=== PATIENT | male | born 1955 | race Caucasian/White ===

== ENCOUNTER 2018-10-17 01:07 | Inpatient (IN) | payer MEDICARE, MEDICAID ==
[~2018-10-17] VITALS: Ht 170.2 cm; Wt 111.3 kg
[2018-10-17] VITALS (51 sets, daily range): BP systolic 98–157; BP diastolic 56–86
[~2018-10-17 01:07] MED LIST: ETOMIDATE 2MG/ML 10ML VIAL IV ONE; GABA-290 PO; METF-414 PO; SUCCINYLCHOLINE CHLORIDE 200MG/10ML IV ONE; TRAM150C25 PO
[2018-10-17] MEDS ORDERED: METHYLPREDNISOLONE SOD SUCC 125 MG/2 ML VIAL ONE (01:55)
[2018-10-17] MEDS ORDERED: ETOMIDATE 2MG/ML 10ML VIAL IV ONE (02:00)
[2018-10-17] MEDS ORDERED: PROPOFOL 10MG/ML 100ML 100 ML IV SCH (02:00)
[2018-10-17] MEDS ORDERED: PROPOFOL 200MG/20ML VIAL IV ONE ×2 (02:00→02:15)
[2018-10-17] MEDS ORDERED: METHYLPREDNISOLONE SOD SUCC 125 MG/2 ML VIAL IV ONE (02:00)
[2018-10-17] MEDS ORDERED: PROPOFOL 10MG/ML 100ML 100 ML IV ONE (02:01)
[2018-10-17] MEDS ORDERED: SUCCINYLCHOLINE CHLORIDE 200MG/10ML IV ONE (02:15)
[2018-10-17] MEDS ORDERED: MIDAZOLAM HCL 50 MG in DEXTROSE 5% WATER 40 ML IV ONE ×4 (02:15)
[2018-10-17] MEDS ORDERED: SODIUM CHLORIDE 0.9% 1,000 ML IV ONE ×2 (02:15)
[2018-10-17 02:34] LABS: BG BASE EXCESS -5.9 mmol/L (-2.0-2.0); BG CARBOXYHEMOGLOBIN 4.6 % (0.5-1.5); BG DEOXYHEMOGLOBIN 1.6 % (0.0-5.0); BG FRACTION INSPIRED OXYGEN 100; BG HCO3 ACT 22.3 mmol/L (22.0-26.0); BG METHEMOGLOBIN 0.4 % (0.0-1.5); BG OXYGEN SATURATION 98.3 % (92.0-98.5); BG OXYHEMOGLOBIN 93.4 % (94.0-97.0); BG PCO2 53.3 mmHg (35.0-45.0); BG PO2 148.4 mmHg (75.0-100.0); BG SAMPLE SITE RIGHT RADIAL; BG TIDAL VOLUME(mL) 600 mL; BG VENT MODE VENT - A/C; BG VENT RATE 14 set
[2018-10-17 02:45] LABS: BASOPHILS % 0.5 % (0.0-2.0); EOSINOPHILS % 0.4 % (0.0-5.0); HEMATOCRIT. 51.5 % (42.0-52.0); HEMOGLOBIN. 17.7 g/dL (14.0-18.0); LYMPHOCYTES % 20.9 % (20.0-50.0); MEAN CORPUSCULAR HEMOGLOBIN 33.1 pg (28.0-32.0); MEAN CORPUSCULAR VOLUME 95.9 fL (80.0-94.0); MEAN PLATELET VOLUME 6.8 fl (7.4-10.4); NEUTROPHILS % 70.2 % (40.0-76.0); PLATELET 239 x1000/uL (130-400); RED BLOOD CELL COUNT 5.37 mill/uL (4.7-6.1); RED CELL DISTRIBUTION WIDTH 14.3 % (11.6-14.6)
[2018-10-17] MEDS ORDERED: FENTANYL CITRATE/PF 500 MCG in SODIUM CHLORIDE 0.9% 40 ML IV PRN (02:45)
[2018-10-17 02:51] LABS: ETHANOL BLOOD < 10 mg/dL
[2018-10-17 03:10] LABS: CHLORIDE 110 mEq/L (98-107)
[2018-10-17] MEDS: FENTANYL CITRATE/PF 500 MCG in SODIUM CHLORIDE 0.9% 40 ML IV PRN ×3 (03:40→20:30)
[2018-10-17 03:43] LABS: *AMPHETAMINES SCREEN URINE PRESUMTIVE POSITIVE (NEGATIVE); *BARBITURATES SCREEN URINE NEGATIVE (NEGATIVE); *BENZODIAZEPINES SCREEN URINE PRESUMTIVE POSITIVE (NEGATIVE)
[2018-10-17 03:44] LABS: *COCAINE SCREEN URINE PRESUMTIVE POSITIVE (NEGATIVE); CANNABINOID URINE SCREEN NEGATIVE (NEGATIVE); METHADONE URINE SCREEN NEGATIVE (NEGATIVE); OPIATES URINE SCREEN NEGATIVE (NEGATIVE); PHENCYCLIDINE URINE SCREEN NEGATIVE (NEGATIVE)
[2018-10-17 06:46] LABS: BG BASE EXCESS -2.8 mmol/L (-2.0-2.0); BG CARBOXYHEMOGLOBIN 1.4 % (0.5-1.5); BG DEOXYHEMOGLOBIN 1.8 % (0.0-5.0); BG FRACTION INSPIRED OXYGEN 100; BG HCO3 ACT 20.7 mmol/L (22.0-26.0); BG METHEMOGLOBIN 0.2 % (0.0-1.5); BG OXYGEN SATURATION 98.2 % (92.0-98.5); BG OXYHEMOGLOBIN 96.6 % (94.0-97.0); BG PCO2 33.2 mmHg (35.0-45.0); BG PH 7.413 (7.350-7.450); BG SAMPLE SITE RIGHT RADIAL; BG TIDAL VOLUME(mL) 650 mL; BG TOTAL HEMOGLOBIN 16.4 g/dL (12.0-18.0); BG VENT MODE VENT - A/C; BG VENT RATE 16 set
[2018-10-17] MEDS ORDERED: ONDANSETRON HCL 4MG/2ML INJ IV PRN (07:00)
[2018-10-17] MEDS ORDERED: GUAIFENESIN 200MG/10ML SUGAR FREE UDC PO PRN (07:00)
[2018-10-17] MEDS ORDERED: ACETAMINOPHEN 325MG TABLET PO PRN (07:00)
[2018-10-17] MEDS ORDERED: MAGNESIUM/ALUMINUM HYDROXIDE/SIMETHICONE 30ML UDC PO PRN (07:00)
[2018-10-17] MEDS ORDERED: DEXTROSE 50% WATER 50ML SYRINGE IV PRN (07:00)
[2018-10-17] MEDS ORDERED: IPRATROPIUM/ALBUTEROL 0.5-3(2.5)MG/3ML NEB INH PRN (07:00)
[2018-10-17] MEDS ORDERED: DOCUSATE SODIUM 100MG CAPSULE PO PRN (07:00)
[2018-10-17] MEDS ORDERED: DEXT 5%/0.9% NACL KCL 20MEQ/L 1,000 ML IV SCH (07:00)
[2018-10-17] MEDS ORDERED: BLOOD SUGAR DIAGNOSTIC STRIP TEST SCH (07:50)
[2018-10-17] MEDS ORDERED: INSULIN LISPRO 100 UNITS/ML SUBCUT SCH (08:20)
[2018-10-17] MEDS: IPRATROPIUM/ALBUTEROL 0.5-3(2.5)MG/3ML NEB HHN SCH ×4 (08:38→20:03)
[2018-10-17] MEDS: PROPOFOL 10MG/ML 100ML 100 ML IV PRN ×2 (08:46→18:41)
[2018-10-17] MEDS: ENOXAPARIN 30MG/0.3ML SYR SUBCUT SCH ×2 (08:46→20:11)
[2018-10-17] MEDS ORDERED: PANTOPRAZOLE SODIUM 40 MG/VIAL IV SCH (09:00)
[2018-10-17] MEDS: LEVOFLOXACIN 500MG PREMIX 100 ML IV SCH (09:07)
[2018-10-17] MEDS: METHYLPREDNISOLONE SOD SUCC 125 MG/2 ML VIAL IV SCH ×2 (09:07→18:02)
[2018-10-17] MEDS: BLOOD SUGAR DIAGNOSTIC STRIP TEST SCH ×3 (12:03→23:33)
[2018-10-17] MEDS: INSULIN LISPRO 100 UNITS/ML SUBCUT SCH ×3 (12:11→23:33)
[2018-10-17 15:26] LABS: CREATINE KINASE 69 IU/L (39-308)
[2018-10-17 15:27] LABS: CREATINE KINASE MB FRACTION 2.1 ng/mL (0.5-3.6)
[2018-10-17] MEDS: DEXT 5%/0.9% NACL 1,000 ML IV SCH (19:11)
[2018-10-17 23:21] LABS: CREATINE KINASE 51 IU/L (39-308)
[2018-10-17 23:22] LABS: CREATINE KINASE MB FRACTION 1.4 ng/mL (0.5-3.6)
[2018-10-18] VITALS (66 sets, daily range): BP systolic 90–148; BP diastolic 51–77
[2018-10-18] MEDS: IPRATROPIUM/ALBUTEROL 0.5-3(2.5)MG/3ML NEB HHN SCH ×6 (00:22→20:09)
[2018-10-18] MEDS: METHYLPREDNISOLONE SOD SUCC 125 MG/2 ML VIAL IV SCH ×3 (02:16→17:33)
[2018-10-18] MEDS: FENTANYL CITRATE/PF 500 MCG in SODIUM CHLORIDE 0.9% 40 ML IV PRN ×2 (04:27→14:46)
[2018-10-18] MEDS: DEXT 5%/0.9% NACL 1,000 ML IV SCH ×3 (05:07→22:09)
[2018-10-18] MEDS: INSULIN LISPRO 100 UNITS/ML SUBCUT SCH ×4 (05:40→23:06)
[2018-10-18] MEDS: BLOOD SUGAR DIAGNOSTIC STRIP TEST SCH ×4 (05:40→23:52)
[2018-10-18 06:38] LABS: CHLORIDE 114 mEq/L (98-107); HEMATOCRIT. 42.3 % (42.0-52.0); HEMOGLOBIN. 14.6 g/dL (14.0-18.0); MEAN CORPUSCULAR HEMOGLOBIN 32.7 pg (28.0-32.0); MEAN PLATELET VOLUME 7.3 fl (7.4-10.4); PLATELET 187 x1000/uL (130-400); RED BLOOD CELL COUNT 4.45 mill/uL (4.7-6.1)
[2018-10-18] MEDS: PROPOFOL 10MG/ML 100ML 100 ML IV PRN (07:11)
[2018-10-18 07:39] LABS: PLATELET ESTIMATE NORMAL
[2018-10-18] MEDS: ENOXAPARIN 30MG/0.3ML SYR SUBCUT SCH ×2 (08:08→21:14)
[2018-10-18] MEDS: LANSOPRAZOLE 30MG DR CAPSULE NG SCH (08:08)
[2018-10-18] MEDS: LEVOFLOXACIN 500MG PREMIX 100 ML IV SCH (08:08)
[2018-10-18 09:12] LABS: BG BASE EXCESS -5.6 mmol/L (-2.0-2.0); BG CARBOXYHEMOGLOBIN 0.5 % (0.5-1.5); BG DEOXYHEMOGLOBIN 2.5 % (0.0-5.0); BG FRACTION INSPIRED OXYGEN 60; BG HCO3 ACT 19.1 mmol/L (22.0-26.0); BG METHEMOGLOBIN 0.2 % (0.0-1.5); BG OXYGEN SATURATION 97.5 % (92.0-98.5); BG OXYHEMOGLOBIN 96.8 % (94.0-97.0); BG PH 7.355 (7.350-7.450); BG PO2 99.4 mmHg (75.0-100.0); BG SAMPLE SITE RIGHT RADIAL; BG TIDAL VOLUME(mL) 600 mL; BG TOTAL HEMOGLOBIN 14.5 g/dL (12.0-18.0); BG VENT MODE VENT - A/C; BG VENT RATE 16 set
[2018-10-18] MEDS: MIDAZOLAM HCL 50 MG in DEXTROSE 5% WATER 40 ML IV PRN ×2 (09:46→21:43)
[2018-10-18] MEDS ORDERED: DOPAMINE 400MG/250ML PREMIX 250 ML IV PRN (19:00)
[2018-10-19] VITALS (59 sets, daily range): BP systolic 97–191; BP diastolic 54–108
[2018-10-19] MEDS: IPRATROPIUM/ALBUTEROL 0.5-3(2.5)MG/3ML NEB HHN SCH ×6 (00:38→20:19)
[2018-10-19] MEDS: METHYLPREDNISOLONE SOD SUCC 125 MG/2 ML VIAL IV SCH ×3 (01:34→17:33)
[2018-10-19 05:41] LABS: CHLORIDE 116 mEq/L (98-107)
[2018-10-19 05:42] LABS: HEMATOCRIT. 39.3 % (42.0-52.0); HEMOGLOBIN. 13.3 g/dL (14.0-18.0); LYMPHOCYTES % 7.7 % (20.0-50.0); MEAN CORPUSCULAR HEMOGLOBIN 32.4 pg (28.0-32.0); MEAN CORPUSCULAR VOLUME 95.7 fL (80.0-94.0); MEAN PLATELET VOLUME 7.2 fl (7.4-10.4); MONOCYTES % 3.1 % (2.0-8.0); NEUTROPHILS % 89.2 % (40.0-76.0); PLATELET 167 x1000/uL (130-400); RED CELL DISTRIBUTION WIDTH 14.2 % (11.6-14.6)
[2018-10-19] MEDS: BLOOD SUGAR DIAGNOSTIC STRIP TEST SCH ×4 (06:01→23:34)
[2018-10-19] MEDS: INSULIN LISPRO 100 UNITS/ML SUBCUT SCH ×4 (06:01→23:36)
[2018-10-19] MEDS: DEXT 5%/0.9% NACL 1,000 ML IV SCH ×3 (06:26→21:06)
[2018-10-19] MEDS: FENTANYL CITRATE/PF 500 MCG in SODIUM CHLORIDE 0.9% 40 ML IV PRN ×2 (06:26→17:53)
[2018-10-19] MEDS: LANSOPRAZOLE 30MG DR CAPSULE NG SCH (08:56)
[2018-10-19] MEDS: ENOXAPARIN 30MG/0.3ML SYR SUBCUT SCH ×2 (08:57→21:07)
[2018-10-19] MEDS: LEVOFLOXACIN 500MG PREMIX 100 ML IV SCH (08:57)
[2018-10-19 09:21] LABS: BG BASE EXCESS -7.1 mmol/L (-2.0-2.0); BG CARBOXYHEMOGLOBIN 0.3 % (0.5-1.5); BG DEOXYHEMOGLOBIN 6.2 % (0.0-5.0); BG FRACTION INSPIRED OXYGEN 50; BG HCO3 ACT 17.3 mmol/L (22.0-26.0); BG METHEMOGLOBIN 0.3 % (0.0-1.5); BG OXYGEN SATURATION 93.8 % (92.0-98.5); BG OXYHEMOGLOBIN 93.2 % (94.0-97.0); BG PCO2 31.7 mmHg (35.0-45.0); BG PH 7.354 (7.350-7.450); BG SAMPLE SITE RIGHT RADIAL; BG TIDAL VOLUME(mL) 600 mL; BG TOTAL HEMOGLOBIN 13.9 g/dL (12.0-18.0); BG VENT MODE VENT - A/C; BG VENT RATE 16 set
[2018-10-19 15:38] LABS: BG BASE EXCESS -3.2 mmol/L (-2.0-2.0); BG CARBOXYHEMOGLOBIN 0.3 % (0.5-1.5); BG FRACTION INSPIRED OXYGEN 50; BG HCO3 ACT 21.4 mmol/L (22.0-26.0); BG METHEMOGLOBIN 0.3 % (0.0-1.5); BG OXYGEN SATURATION 90.9 % (92.0-98.5); BG OXYHEMOGLOBIN 90.4 % (94.0-97.0); BG PCO2 36.9 mmHg (35.0-45.0); BG PH 7.381 (7.350-7.450); BG PO2 59.4 mmHg (75.0-100.0); BG SAMPLE SITE RIGHT RADIAL; BG TIDAL VOLUME(mL) 600 mL; BG TOTAL HEMOGLOBIN 13.5 g/dL (12.0-18.0); BG VENT MODE VENT - A/C; BG VENT RATE 16 set
[2018-10-19] MEDS: MIDAZOLAM HCL 50 MG in DEXTROSE 5% WATER 40 ML IV PRN (17:40)
[2018-10-20] VITALS (59 sets, daily range): BP systolic 127–242; BP diastolic 74–129
[2018-10-20] MEDS: IPRATROPIUM/ALBUTEROL 0.5-3(2.5)MG/3ML NEB HHN SCH ×6 (00:08→20:05)
[2018-10-20] MEDS: METHYLPREDNISOLONE SOD SUCC 125 MG/2 ML VIAL IV SCH ×2 (01:30→09:07)
[2018-10-20] MEDS: FENTANYL CITRATE/PF 500 MCG in SODIUM CHLORIDE 0.9% 40 ML IV PRN ×3 (04:05→19:12)
[2018-10-20] MEDS: MIDAZOLAM HCL 50 MG in DEXTROSE 5% WATER 40 ML IV PRN ×2 (04:06→19:14)
[2018-10-20] MEDS: INSULIN LISPRO 100 UNITS/ML SUBCUT SCH ×4 (06:00→23:15)
[2018-10-20] MEDS: DEXT 5%/0.9% NACL 1,000 ML IV SCH ×3 (06:11→20:25)
[2018-10-20] MEDS: BLOOD SUGAR DIAGNOSTIC STRIP TEST SCH ×4 (06:13→23:15)
[2018-10-20 08:52] LABS: BG CARBOXYHEMOGLOBIN 0.2 % (0.5-1.5); BG DEOXYHEMOGLOBIN 8.5 % (0.0-5.0); BG FRACTION INSPIRED OXYGEN 65; BG HCO3 ACT 19.2 mmol/L (22.0-26.0); BG METHEMOGLOBIN 0.2 % (0.0-1.5); BG OXYGEN SATURATION 91.5 % (92.0-98.5); BG OXYHEMOGLOBIN 91.1 % (94.0-97.0); BG PCO2 33.2 mmHg (35.0-45.0); BG PH 7.379 (7.350-7.450); BG SAMPLE SITE RIGHT RADIAL; BG TIDAL VOLUME(mL) 600 mL; BG TOTAL HEMOGLOBIN 14.4 g/dL (12.0-18.0); BG VENT MODE VENT - A/C; BG VENT RATE 16 set
[2018-10-20] MEDS: LANSOPRAZOLE 30MG DR CAPSULE NG SCH (09:06)
[2018-10-20] MEDS: ENOXAPARIN 30MG/0.3ML SYR SUBCUT SCH ×2 (09:06→20:25)
[2018-10-20] MEDS: LEVOFLOXACIN 500MG PREMIX 100 ML IV SCH (09:06)
[2018-10-20] MEDS: METHYLPREDNISOLONE SOD SUCC 40 MG/ML VIAL IV SCH (17:04)
[2018-10-20 20:58] LABS: BASOPHILS % 0.1 % (0.0-2.0); HEMATOCRIT. 44.9 % (42.0-52.0); HEMOGLOBIN. 15.2 g/dL (14.0-18.0); LYMPHOCYTES % 7.7 % (20.0-50.0); MEAN CORPUSCULAR HEMOGLOBIN 32.4 pg (28.0-32.0); MEAN CORPUSCULAR VOLUME 95.9 fL (80.0-94.0); MONOCYTES % 7.7 % (2.0-8.0); NEUTROPHILS % 84.5 % (40.0-76.0); PLATELET 201 x1000/uL (130-400); RED BLOOD CELL COUNT 4.68 mill/uL (4.7-6.1); RED CELL DISTRIBUTION WIDTH 13.7 % (11.6-14.6)
[2018-10-20 21:17] LABS: CHLORIDE 116 mEq/L (98-107)
[2018-10-21] VITALS (80 sets, daily range): BP systolic 107–193; BP diastolic 59–123
[2018-10-21] MEDS: IPRATROPIUM/ALBUTEROL 0.5-3(2.5)MG/3ML NEB HHN SCH ×6 (00:35→20:54)
[2018-10-21] MEDS: MIDAZOLAM HCL 50 MG in DEXTROSE 5% WATER 40 ML IV PRN ×3 (01:49→19:22)
[2018-10-21] MEDS: FENTANYL CITRATE/PF 500 MCG in SODIUM CHLORIDE 0.9% 40 ML IV PRN ×2 (01:49→11:05)
[2018-10-21] MEDS: DEXT 5%/0.9% NACL 1,000 ML IV SCH ×3 (05:32→21:55)
[2018-10-21] MEDS: BLOOD SUGAR DIAGNOSTIC STRIP TEST SCH ×4 (05:32→23:30)
[2018-10-21] MEDS: INSULIN LISPRO 100 UNITS/ML SUBCUT SCH ×4 (06:00→23:30)
[2018-10-21 07:35] LABS: BG BASE EXCESS -4.7 mmol/L (-2.0-2.0); BG CARBOXYHEMOGLOBIN 0.5 % (0.5-1.5); BG DEOXYHEMOGLOBIN 6.4 % (0.0-5.0); BG FRACTION INSPIRED OXYGEN 60; BG METHEMOGLOBIN 0.2 % (0.0-1.5); BG OXYGEN SATURATION 93.6 % (92.0-98.5); BG OXYHEMOGLOBIN 92.9 % (94.0-97.0); BG PCO2 31.7 mmHg (35.0-45.0); BG PH 7.396 (7.350-7.450); BG PO2 67.6 mmHg (75.0-100.0); BG SAMPLE SITE RIGHT RADIAL; BG TIDAL VOLUME(mL) 600 mL; BG TOTAL HEMOGLOBIN 14.6 g/dL (12.0-18.0); BG VENT MODE VENT - A/C; BG VENT RATE 16 set
[2018-10-21] MEDS: LANSOPRAZOLE 30MG DR CAPSULE NG SCH ×2 (07:50→10:19)
[2018-10-21] MEDS: METHYLPREDNISOLONE SOD SUCC 40 MG/ML VIAL IV SCH ×2 (08:22→17:21)
[2018-10-21] MEDS: ENOXAPARIN 30MG/0.3ML SYR SUBCUT SCH ×2 (08:22→21:55)
[2018-10-21 09:13] LABS: BASOPHILS % 0.1 % (0.0-2.0); HEMATOCRIT. 40.6 % (42.0-52.0); HEMOGLOBIN. 13.9 g/dL (14.0-18.0); LYMPHOCYTES % 31.3 % (20.0-50.0); MEAN CORPUSCULAR HEMOGLOBIN 32.5 pg (28.0-32.0); MEAN PLATELET VOLUME 6.9 fl (7.4-10.4); MONOCYTES % 10.1 % (2.0-8.0); NEUTROPHILS % 58.5 % (40.0-76.0); PLATELET 191 x1000/uL (130-400); RED BLOOD CELL COUNT 4.27 mill/uL (4.7-6.1); RED CELL DISTRIBUTION WIDTH 13.9 % (11.6-14.6)
[2018-10-21 09:19] LABS: CHLORIDE 115 mEq/L (98-107)
[2018-10-21] MEDS: ACETYLCYSTEINE 100MG/ML 10% VIAL 4ML INH SCH (15:15)
[2018-10-21] MEDS ORDERED: ATROPINE SULFATE 1MG/10ML SYR ONE (23:39)
[2018-10-22] VITALS (83 sets, daily range): BP systolic 98–187; BP diastolic 54–94
[2018-10-22] MEDS: ACETYLCYSTEINE 100MG/ML 10% VIAL 4ML INH SCH ×3 (00:33→16:25)
[2018-10-22] MEDS: IPRATROPIUM/ALBUTEROL 0.5-3(2.5)MG/3ML NEB HHN SCH ×6 (00:34→20:46)
[2018-10-22] MEDS: FENTANYL CITRATE/PF 500 MCG in SODIUM CHLORIDE 0.9% 40 ML IV PRN ×3 (01:16→19:57)
[2018-10-22] MEDS: ATROPINE SULFATE 1MG/ML VIAL IV PRN (01:16)
[2018-10-22] MEDS: MIDAZOLAM HCL 50 MG in DEXTROSE 5% WATER 40 ML IV PRN ×2 (05:28→17:45)
[2018-10-22] MEDS: INSULIN LISPRO 100 UNITS/ML SUBCUT SCH ×4 (05:29→23:41)
[2018-10-22] MEDS: DEXT 5%/0.9% NACL 1,000 ML IV SCH (05:32)
[2018-10-22] MEDS: BLOOD SUGAR DIAGNOSTIC STRIP TEST SCH ×5 (05:32→23:41)
[2018-10-22 07:51] LABS: HEMATOCRIT. 42.4 % (42.0-52.0); HEMOGLOBIN. 14.6 g/dL (14.0-18.0); MEAN CORPUSCULAR HEMOGLOBIN 32.7 pg (28.0-32.0); MEAN CORPUSCULAR VOLUME 95.1 fL (80.0-94.0); MEAN PLATELET VOLUME 7.3 fl (7.4-10.4); PLATELET 195 x1000/uL (130-400); RED BLOOD CELL COUNT 4.46 mill/uL (4.7-6.1); RED CELL DISTRIBUTION WIDTH 13.7 % (11.6-14.6)
[2018-10-22 07:59] LABS: CHLORIDE 111 mEq/L (98-107)
[2018-10-22] MEDS: ENOXAPARIN 30MG/0.3ML SYR SUBCUT SCH ×2 (09:15→21:03)
[2018-10-22] MEDS: METHYLPREDNISOLONE SOD SUCC 40 MG/ML VIAL IV SCH (09:15)
[2018-10-22 09:22] LABS: BG BASE EXCESS -3.2 mmol/L (-2.0-2.0); BG CARBOXYHEMOGLOBIN 0.5 % (0.5-1.5); BG DEOXYHEMOGLOBIN 4.7 % (0.0-5.0); BG FRACTION INSPIRED OXYGEN 60; BG HCO3 ACT 21.3 mmol/L (22.0-26.0); BG METHEMOGLOBIN 0.1 % (0.0-1.5); BG OXYGEN SATURATION 95.3 % (92.0-98.5); BG OXYHEMOGLOBIN 94.7 % (94.0-97.0); BG PCO2 36.8 mmHg (35.0-45.0); BG PH 7.381 (7.350-7.450); BG PO2 79.8 mmHg (75.0-100.0); BG SAMPLE SITE RIGHT RADIAL; BG TIDAL VOLUME(mL) 600 mL; BG TOTAL HEMOGLOBIN 14.8 g/dL (12.0-18.0); BG VENT MODE VENT - A/C; BG VENT RATE 16 set
[2018-10-22] MEDS ORDERED: FUROSEMIDE 40MG/4ML VIAL IVP NR (10:15)
[2018-10-22 14:12] LABS: PLATELET ESTIMATE NORMAL
[2018-10-23] VITALS (64 sets, daily range): BP systolic 88–160; BP diastolic 51–92
[2018-10-23] MEDS: ACETYLCYSTEINE 100MG/ML 10% VIAL 4ML INH SCH ×3 (00:25→16:05)
[2018-10-23] MEDS: IPRATROPIUM/ALBUTEROL 0.5-3(2.5)MG/3ML NEB HHN SCH ×6 (00:25→20:26)
[2018-10-23] MEDS: MIDAZOLAM HCL 50 MG in DEXTROSE 5% WATER 40 ML IV PRN ×3 (01:02→18:50)
[2018-10-23] MEDS: FENTANYL CITRATE/PF 500 MCG in SODIUM CHLORIDE 0.9% 40 ML IV PRN ×4 (01:33→17:30)
[2018-10-23] MEDS: ATROPINE SULFATE 1MG/ML VIAL IV PRN ×2 (04:15→21:08)
[2018-10-23 05:30] LABS: CHLORIDE 107 mEq/L (98-107)
[2018-10-23 05:35] LABS: HEMATOCRIT. 41.8 % (42.0-52.0); HEMOGLOBIN. 14.5 g/dL (14.0-18.0); MEAN CORPUSCULAR HEMOGLOBIN 32.5 pg (28.0-32.0); MEAN CORPUSCULAR VOLUME 93.5 fL (80.0-94.0); MEAN PLATELET VOLUME 7.3 fl (7.4-10.4); PLATELET 196 x1000/uL (130-400); RED BLOOD CELL COUNT 4.47 mill/uL (4.7-6.1); RED CELL DISTRIBUTION WIDTH 13.5 % (11.6-14.6)
[2018-10-23] MEDS: INSULIN LISPRO 100 UNITS/ML SUBCUT SCH ×3 (05:56→17:42)
[2018-10-23] MEDS: BLOOD SUGAR DIAGNOSTIC STRIP TEST SCH ×3 (05:56→17:35)
[2018-10-23 07:52] LABS: BG BASE EXCESS -0.1 mmol/L (-2.0-2.0); BG CARBOXYHEMOGLOBIN 0.4 % (0.5-1.5); BG DEOXYHEMOGLOBIN 6.4 % (0.0-5.0); BG FRACTION INSPIRED OXYGEN 50; BG HCO3 ACT 22.3 mmol/L (22.0-26.0); BG METHEMOGLOBIN 0.1 % (0.0-1.5); BG OXYGEN SATURATION 93.6 % (92.0-98.5); BG OXYHEMOGLOBIN 93.1 % (94.0-97.0); BG PCO2 30.5 mmHg (35.0-45.0); BG PH 7.481 (7.350-7.450); BG PO2 66.1 mmHg (75.0-100.0); BG SAMPLE SITE RIGHT RADIAL; BG TIDAL VOLUME(mL) 600 mL; BG TOTAL HEMOGLOBIN 15.3 g/dL (12.0-18.0); BG VENT MODE VENT - A/C; BG VENT RATE 16 set
[2018-10-23 08:01] LABS: PLATELET ESTIMATE NORMAL
[2018-10-23] MEDS: LANSOPRAZOLE 30MG DR CAPSULE NG SCH (08:37)
[2018-10-23] MEDS: ENOXAPARIN 30MG/0.3ML SYR SUBCUT SCH ×2 (08:38→20:49)
[2018-10-23] MEDS ORDERED: METHYLPREDNISOLONE SOD SUCC 40 MG/ML VIAL IV SCH ×2 (09:00→14:00)
[2018-10-23] MEDS: CEFTRIAXONE 1 G PREMIX 50 ML IV SCH (10:49)
[2018-10-23] MEDS ORDERED: LIDOCAINE HCL 1% 20ML VIAL (Pyxis) INJ ONE (12:47)
[2018-10-23] MEDS ORDERED: PROPOFOL 10MG/ML 100ML 100 ML IV PRN (13:00)
[2018-10-23] MEDS: LORAZEPAM 2MG/ML CPJ IV PRN ×2 (13:24→16:45)
[2018-10-23] MEDS: SPIRONOLACTONE 25MG TABLET PO SCH (17:40)
[2018-10-23] MEDS: METHYLPREDNISOLONE SOD SUCC 125 MG/2 ML VIAL IV SCH (20:49)
[2018-10-23] MEDS: FUROSEMIDE 20MG TABLET PO SCH (20:50)
[2018-10-24] VITALS (93 sets, daily range): BP systolic 93–202; BP diastolic 48–106
[2018-10-24] MEDS: BLOOD SUGAR DIAGNOSTIC STRIP TEST SCH ×4 (00:01→17:42)
[2018-10-24] MEDS: FENTANYL CITRATE/PF 500 MCG in SODIUM CHLORIDE 0.9% 40 ML IV PRN ×5 (00:08→21:55)
[2018-10-24] MEDS: INSULIN LISPRO 100 UNITS/ML SUBCUT SCH ×4 (00:08→17:55)
[2018-10-24] MEDS: SODIUM CHLORIDE 3% FOR INH 15ML VIAL NEB INH SCH ×2 (00:19→11:48)
[2018-10-24] MEDS: IPRATROPIUM/ALBUTEROL 0.5-3(2.5)MG/3ML NEB HHN SCH ×4 (01:32→20:12)
[2018-10-24] MEDS: ACETYLCYSTEINE 100MG/ML 10% VIAL 4ML INH SCH ×2 (01:33→15:50)
[2018-10-24] MEDS: METHYLPREDNISOLONE SOD SUCC 125 MG/2 ML VIAL IV SCH ×4 (01:39→20:50)
[2018-10-24] MEDS: SPIRONOLACTONE 25MG TABLET PO SCH ×2 (06:12→17:22)
[2018-10-24] MEDS: ATROPINE SULFATE 1MG/ML VIAL IV PRN (07:07)
[2018-10-24 07:34] LABS: BG BASE EXCESS 0.3 mmol/L (-2.0-2.0); BG CARBOXYHEMOGLOBIN 0.3 % (0.5-1.5); BG FRACTION INSPIRED OXYGEN 50; BG METHEMOGLOBIN 0.2 % (0.0-1.5); BG OXYHEMOGLOBIN 94.5 % (94.0-97.0); BG PCO2 36.2 mmHg (35.0-45.0); BG PO2 76.3 mmHg (75.0-100.0); BG SAMPLE SITE RIGHT RADIAL; BG TIDAL VOLUME(mL) 600 mL; BG TOTAL HEMOGLOBIN 15.7 g/dL (12.0-18.0); BG VENT MODE VENT - A/C; BG VENT RATE 14 set
[2018-10-24] MEDS: DOBUTAMINE 250MG PREMIX 250 ML IV SCH (10:00)
[2018-10-24] MEDS: LANSOPRAZOLE 30MG DR CAPSULE NG SCH (10:11)
[2018-10-24] MEDS: FUROSEMIDE 20MG TABLET PO SCH ×2 (10:11→20:50)
[2018-10-24] MEDS: ENOXAPARIN 30MG/0.3ML SYR SUBCUT SCH ×2 (10:12→20:50)
[2018-10-24] MEDS: CEFTRIAXONE 1 G PREMIX 50 ML IV SCH (10:55)
[2018-10-24 11:24] LABS: BASOPHILS % 0.2 % (0.0-2.0); HEMATOCRIT. 42.6 % (42.0-52.0); HEMOGLOBIN. 14.8 g/dL (14.0-18.0); MEAN CORPUSCULAR HEMOGLOBIN 32.2 pg (28.0-32.0); MEAN PLATELET VOLUME 7.1 fl (7.4-10.4); MONOCYTES % 3.4 % (2.0-8.0); NEUTROPHILS % 85.4 % (40.0-76.0); PLATELET 213 x1000/uL (130-400); RED BLOOD CELL COUNT 4.58 mill/uL (4.7-6.1); RED CELL DISTRIBUTION WIDTH 13.8 % (11.6-14.6)
[2018-10-24 11:29] LABS: CHLORIDE 105 mEq/L (98-107)
[2018-10-24 11:43] LABS: CREATINE KINASE 19 IU/L (39-308)
[2018-10-24 11:44] LABS: CREATINE KINASE MB FRACTION < 1.0 ng/mL (0.5-3.6)
[2018-10-24 13:17] LABS: BG BASE EXCESS -1.1 mmol/L (-2.0-2.0); BG CARBOXYHEMOGLOBIN 0.2 % (0.5-1.5); BG DEOXYHEMOGLOBIN 8.1 % (0.0-5.0); BG FRACTION INSPIRED OXYGEN 40; BG HCO3 ACT 22.2 mmol/L (22.0-26.0); BG METHEMOGLOBIN 0.3 % (0.0-1.5); BG OXYGEN SATURATION 91.9 % (92.0-98.5); BG OXYHEMOGLOBIN 91.4 % (94.0-97.0); BG PCO2 33.6 mmHg (35.0-45.0); BG PH 7.437 (7.350-7.450); BG PO2 63.1 mmHg (75.0-100.0); BG PRESSURE SUPPORT 8; BG SAMPLE SITE RIGHT RADIAL; BG TOTAL HEMOGLOBIN 17.6 g/dL (12.0-18.0); BG VENT MODE VENT - CPAP
[2018-10-24] MEDS: MIDAZOLAM HCL 50 MG in DEXTROSE 5% WATER 40 ML IV PRN ×2 (13:50→21:55)
[2018-10-24] MEDS ORDERED: MINERAL OIL ENEMA 133ML PR NR (17:15)
[2018-10-24] MEDS ORDERED: MINERAL OIL ENEMA 133ML PR ONE (17:15)
[2018-10-24] MEDS ORDERED: BISACODYL 10MG SUPP PR PRN (17:15)
[2018-10-24] MEDS ORDERED: LACTULOSE 20G/30ML UDC PO PRN (17:15)
[2018-10-24] MEDS ORDERED: LACTULOSE 20G/30ML UDC PO NR (17:15)
[2018-10-25] VITALS (80 sets, daily range): BP systolic 84–236; BP diastolic 45–122
[2018-10-25] MEDS: BLOOD SUGAR DIAGNOSTIC STRIP TEST SCH ×4 (00:02→18:02)
[2018-10-25] MEDS: INSULIN LISPRO 100 UNITS/ML SUBCUT SCH ×5 (00:02→23:18)
[2018-10-25] MEDS: ACETYLCYSTEINE 100MG/ML 10% VIAL 4ML INH SCH ×3 (00:28→15:46)
[2018-10-25] MEDS: IPRATROPIUM/ALBUTEROL 0.5-3(2.5)MG/3ML NEB HHN SCH ×6 (00:28→20:50)
[2018-10-25] MEDS: METHYLPREDNISOLONE SOD SUCC 125 MG/2 ML VIAL IV SCH ×4 (01:34→20:38)
[2018-10-25 05:27] LABS: CHLORIDE 106 mEq/L (98-107)
[2018-10-25 05:31] LABS: HEMATOCRIT. 45.7 % (42.0-52.0); HEMOGLOBIN. 15.5 g/dL (14.0-18.0); MEAN CORPUSCULAR HEMOGLOBIN 31.9 pg (28.0-32.0); MEAN PLATELET VOLUME 7.2 fl (7.4-10.4); PLATELET 234 x1000/uL (130-400); RED BLOOD CELL COUNT 4.86 mill/uL (4.7-6.1); RED CELL DISTRIBUTION WIDTH 14.1 % (11.6-14.6)
[2018-10-25 05:36] LABS: HDL CHOLESTEROL 45 mg/dL (40-59); LDL CHOLESTEROL 141 mg/dL (5-100)
[2018-10-25] MEDS: SPIRONOLACTONE 25MG TABLET PO SCH (06:04)
[2018-10-25] MEDS: MIDAZOLAM HCL 50 MG in DEXTROSE 5% WATER 40 ML IV PRN ×2 (07:07→16:49)
[2018-10-25] MEDS: FENTANYL CITRATE/PF 500 MCG in SODIUM CHLORIDE 0.9% 40 ML IV PRN ×3 (07:08→22:40)
[2018-10-25] MEDS: ATROPINE SULFATE 1MG/ML VIAL IV PRN (07:26)
[2018-10-25] MEDS: DOBUTAMINE 250MG PREMIX 250 ML IV SCH ×2 (07:52→08:16)
[2018-10-25] MEDS ORDERED: DOBUTAMINE HCL IN DEXTROSE 5 % 250 ML IV PRN (08:00)
[2018-10-25] MEDS: FUROSEMIDE 20MG TABLET PO SCH (08:13)
[2018-10-25] MEDS: LANSOPRAZOLE 30MG DR CAPSULE NG SCH (08:13)
[2018-10-25] MEDS: ENOXAPARIN 30MG/0.3ML SYR SUBCUT SCH ×2 (08:13→20:38)
[2018-10-25 09:32] LABS: PLATELET ESTIMATE NORMAL
[2018-10-25] MEDS: CEFTRIAXONE 1 G PREMIX 50 ML IV SCH (10:23)
[2018-10-25 11:44] LABS: BG BASE EXCESS 0.5 mmol/L (-2.0-2.0); BG CARBOXYHEMOGLOBIN 0.3 % (0.5-1.5); BG DEOXYHEMOGLOBIN 4.1 % (0.0-5.0); BG HCO3 ACT 26.3 mmol/L (22.0-26.0); BG METHEMOGLOBIN 0.2 % (0.0-1.5); BG OXYGEN SATURATION 95.9 % (92.0-98.5); BG OXYHEMOGLOBIN 95.4 % (94.0-97.0); BG PCO2 46.2 mmHg (35.0-45.0); BG PH 7.373 (7.350-7.450); BG PO2 85.9 mmHg (75.0-100.0); BG SAMPLE SITE RIGHT RADIAL; BG TIDAL VOLUME(mL) 550 mL; BG TOTAL HEMOGLOBIN 15.6 g/dL (12.0-18.0); BG VENT MODE VENT - SIMV; BG VENT RATE 8 set
[2018-10-25] MEDS ORDERED: DOCUSATE SODIUM SUGAR FREE 100MG/10ML UDC GT PRN (15:15)
[2018-10-25] MEDS: LORAZEPAM 2MG/ML CPJ IV PRN (21:47)
[2018-10-25] MEDS: DIPHENHYDRAMINE 50MG/ML VIAL IV PRN (21:48)
[2018-10-26] VITALS (58 sets, daily range): BP systolic 91–235; BP diastolic 37–172
[2018-10-26] MEDS: CLONIDINE 0.1MG TABLET PO PRN ×2 (00:23→22:03)
[2018-10-26] MEDS: BLOOD SUGAR DIAGNOSTIC STRIP TEST SCH ×4 (00:41→17:42)
[2018-10-26] MEDS: ACETYLCYSTEINE 100MG/ML 10% VIAL 4ML INH SCH ×2 (01:22→09:10)
[2018-10-26] MEDS: IPRATROPIUM/ALBUTEROL 0.5-3(2.5)MG/3ML NEB HHN SCH ×6 (01:22→20:36)
[2018-10-26] MEDS: MIDAZOLAM HCL 50 MG in DEXTROSE 5% WATER 40 ML IV PRN ×3 (01:44→20:28)
[2018-10-26] MEDS: INSULIN LISPRO 100 UNITS/ML SUBCUT SCH ×3 (05:15→17:49)
[2018-10-26] MEDS: METHYLPREDNISOLONE SOD SUCC 125 MG/2 ML VIAL IV SCH ×4 (05:25→21:16)
[2018-10-26] MEDS: FENTANYL CITRATE/PF 500 MCG in SODIUM CHLORIDE 0.9% 40 ML IV PRN ×3 (07:33→20:39)
[2018-10-26 08:10] LABS: BG BASE EXCESS -0.1 mmol/L (-2.0-2.0); BG CARBOXYHEMOGLOBIN 0.7 % (0.5-1.5); BG DEOXYHEMOGLOBIN 3.1 % (0.0-5.0); BG HCO3 ACT 25.9 mmol/L (22.0-26.0); BG METHEMOGLOBIN 0.3 % (0.0-1.5); BG OXYGEN SATURATION 96.9 % (92.0-98.5); BG OXYHEMOGLOBIN 95.9 % (94.0-97.0); BG PCO2 46.6 mmHg (35.0-45.0); BG PH 7.362 (7.350-7.450); BG PO2 95.4 mmHg (75.0-100.0); BG SAMPLE SITE RIGHT RADIAL; BG TIDAL VOLUME(mL) 550 mL; BG TOTAL HEMOGLOBIN 15.7 g/dL (12.0-18.0); BG VENT MODE VENT - SIMV; BG VENT RATE 8 set
[2018-10-26] MEDS: LANSOPRAZOLE 30MG DR CAPSULE NG SCH (08:17)
[2018-10-26] MEDS: ENOXAPARIN 30MG/0.3ML SYR SUBCUT SCH ×2 (08:18→21:16)
[2018-10-26] MEDS: DOBUTAMINE 250MG PREMIX 250 ML IV SCH (08:19)
[2018-10-26] MEDS: CEFTRIAXONE 1 G PREMIX 50 ML IV SCH (11:11)
[2018-10-26 12:17] LABS: HEMATOCRIT. 43.9 % (42.0-52.0); MEAN CORPUSCULAR HEMOGLOBIN 32.9 pg (28.0-32.0); MEAN CORPUSCULAR VOLUME 95.9 fL (80.0-94.0); PLATELET 180 x1000/uL (130-400); RED BLOOD CELL COUNT 4.57 mill/uL (4.7-6.1); RED CELL DISTRIBUTION WIDTH 14.1 % (11.6-14.6)
[2018-10-26 12:27] LABS: CHLORIDE 106 mEq/L (98-107)
[2018-10-26 13:08] LABS: PLATELET ESTIMATE NORMAL
[2018-10-26] MEDS: ATORVASTATIN CALCIUM 10MG TABLET PO SCH (21:16)
[2018-10-26] MEDS: DIPHENHYDRAMINE 50MG/ML VIAL IV PRN (22:41)
[2018-10-26] MEDS: LORAZEPAM 2MG/ML CPJ IV PRN (22:41)
[2018-10-27] VITALS (51 sets, daily range): BP systolic 105–209; BP diastolic 47–128
[2018-10-27] MEDS: BLOOD SUGAR DIAGNOSTIC STRIP TEST SCH ×4 (00:04→17:23)
[2018-10-27] MEDS: INSULIN LISPRO 100 UNITS/ML SUBCUT SCH ×4 (00:08→18:10)
[2018-10-27] MEDS: IPRATROPIUM/ALBUTEROL 0.5-3(2.5)MG/3ML NEB HHN SCH ×6 (00:31→20:47)
[2018-10-27] MEDS: ACETYLCYSTEINE 100MG/ML 10% VIAL 4ML INH SCH (00:31)
[2018-10-27] MEDS: LORAZEPAM 2MG/ML CPJ IV PRN ×2 (01:11→23:33)
[2018-10-27] MEDS: FENTANYL CITRATE/PF 500 MCG in SODIUM CHLORIDE 0.9% 40 ML IV PRN (02:59)
[2018-10-27] MEDS: DOBUTAMINE 250MG PREMIX 250 ML IV SCH (03:00)
[2018-10-27] MEDS: METHYLPREDNISOLONE SOD SUCC 125 MG/2 ML VIAL IV SCH ×4 (03:01→20:24)
[2018-10-27] MEDS: LANSOPRAZOLE 30MG DR CAPSULE NG SCH (07:44)
[2018-10-27] MEDS: ENOXAPARIN 30MG/0.3ML SYR SUBCUT SCH ×2 (08:06→20:25)
[2018-10-27 08:34] LABS: BG CARBOXYHEMOGLOBIN 0.5 % (0.5-1.5); BG DEOXYHEMOGLOBIN 1.7 % (0.0-5.0); BG FRACTION INSPIRED OXYGEN 50; BG HCO3 ACT 26.5 mmol/L (22.0-26.0); BG METHEMOGLOBIN 0.1 % (0.0-1.5); BG OXYGEN SATURATION 98.3 % (92.0-98.5); BG OXYHEMOGLOBIN 97.7 % (94.0-97.0); BG PCO2 45.1 mmHg (35.0-45.0); BG PH 7.387 (7.350-7.450); BG PRESSURE SUPPORT 12; BG SAMPLE SITE RIGHT RADIAL; BG TIDAL VOLUME(mL) 550 mL; BG TOTAL HEMOGLOBIN 15.8 g/dL (12.0-18.0); BG VENT MODE VENT - SIMV; BG VENT RATE 6 set
[2018-10-27] MEDS: MIDAZOLAM HCL 50 MG in DEXTROSE 5% WATER 40 ML IV PRN (09:05)
[2018-10-27 09:16] LABS: HEMATOCRIT. 42.7 % (42.0-52.0); HEMOGLOBIN. 14.7 g/dL (14.0-18.0); MEAN CORPUSCULAR HEMOGLOBIN 32.8 pg (28.0-32.0); MEAN CORPUSCULAR VOLUME 95.2 fL (80.0-94.0); PLATELET 188 x1000/uL (130-400); RED BLOOD CELL COUNT 4.49 mill/uL (4.7-6.1); RED CELL DISTRIBUTION WIDTH 14.3 % (11.6-14.6)
[2018-10-27 09:25] LABS: CHLORIDE 106 mEq/L (98-107)
[2018-10-27] MEDS: CEFTRIAXONE 1 G PREMIX 50 ML IV SCH (10:29)
[2018-10-27 10:41] LABS: PLATELET ESTIMATE NORMAL
[2018-10-27 11:47] LABS: BG BASE EXCESS 1.4 mmol/L (-2.0-2.0); BG CARBOXYHEMOGLOBIN 0.5 % (0.5-1.5); BG DEOXYHEMOGLOBIN 5.6 % (0.0-5.0); BG FRACTION INSPIRED OXYGEN 40; BG HCO3 ACT 25.1 mmol/L (22.0-26.0); BG METHEMOGLOBIN 0.2 % (0.0-1.5); BG OXYGEN SATURATION 94.4 % (92.0-98.5); BG OXYHEMOGLOBIN 93.7 % (94.0-97.0); BG PCO2 37.1 mmHg (35.0-45.0); BG PH 7.449 (7.350-7.450); BG PO2 66.4 mmHg (75.0-100.0); BG PRESSURE SUPPORT 8; BG SAMPLE SITE RIGHT RADIAL; BG TOTAL HEMOGLOBIN 15.8 g/dL (12.0-18.0); BG VENT MODE VENT - CPAP
[2018-10-27] MEDS ORDERED: SODIUM POLYSTYRENE SULFONATE 15 G/60 ML BOT PO NR (17:30)
[2018-10-27] MEDS: ATORVASTATIN CALCIUM 10MG TABLET PO SCH (20:25)
[2018-10-27] MEDS: CLONIDINE 0.1MG TABLET PO PRN (20:25)
[2018-10-27] MEDS: DIPHENHYDRAMINE 50MG/ML VIAL IV PRN (23:33)
[2018-10-28] VITALS (27 sets, daily range): BP systolic 94–188; BP diastolic 47–126
[2018-10-28] MEDS: BLOOD SUGAR DIAGNOSTIC STRIP TEST SCH ×5 (00:06→23:48)
[2018-10-28] MEDS: INSULIN LISPRO 100 UNITS/ML SUBCUT SCH ×5 (00:10→23:48)
[2018-10-28] MEDS: IPRATROPIUM/ALBUTEROL 0.5-3(2.5)MG/3ML NEB HHN SCH ×6 (00:53→22:00)
[2018-10-28] MEDS: LORAZEPAM 2MG/ML CPJ IV PRN ×2 (02:26→04:33)
[2018-10-28] MEDS: CLONIDINE 0.1MG TABLET PO PRN (02:27)
[2018-10-28] MEDS: DIPHENHYDRAMINE 50MG/ML VIAL IV PRN (04:33)
[2018-10-28 05:21] LABS: HEMATOCRIT. 44.6 % (42.0-52.0); HEMOGLOBIN. 15.4 g/dL (14.0-18.0); MEAN CORPUSCULAR HEMOGLOBIN 32.4 pg (28.0-32.0); MEAN CORPUSCULAR VOLUME 93.9 fL (80.0-94.0); MEAN PLATELET VOLUME 6.9 fl (7.4-10.4); PLATELET 193 x1000/uL (130-400); RED BLOOD CELL COUNT 4.75 mill/uL (4.7-6.1); RED CELL DISTRIBUTION WIDTH 13.7 % (11.6-14.6)
[2018-10-28 05:33] LABS: CHLORIDE 104 mEq/L (98-107)
[2018-10-28] MEDS: LANSOPRAZOLE 30MG DR CAPSULE NG SCH (07:50)
[2018-10-28] MEDS: DOBUTAMINE 250MG PREMIX 250 ML IV SCH (08:15)
[2018-10-28] MEDS: ENOXAPARIN 30MG/0.3ML SYR SUBCUT SCH (08:25)
[2018-10-28 09:11] LABS: PLATELET ESTIMATE NORMAL
[2018-10-28] MEDS: CEFTRIAXONE 1 G PREMIX 50 ML IV SCH (10:27)
[2018-10-28] MEDS ORDERED: THROAT LOZENGES-BENZOCAINE/MENTH/CETYLPYRD CL LOZENGES MM PRN (11:30)
[2018-10-28] MEDS ORDERED: HYDRALAZINE 20MG/ML VIAL IV PRN (11:45)
[2018-10-28] MEDS: METHYLPREDNISOLONE SOD SUCC 40 MG/ML VIAL IV SCH ×2 (12:12→21:01)
[2018-10-28] MEDS: AMLODIPINE 5MG TABLET PO SCH ×2 (12:12→21:02)
[2018-10-28] MEDS: ENOXAPARIN 40MG/0.4ML SYR SUBCUT SCH (21:01)
[2018-10-28] MEDS: ATORVASTATIN CALCIUM 10MG TABLET PO SCH (21:02)
[2018-10-29] VITALS (11 sets, daily range): BP systolic 123–148; BP diastolic 54–95
[2018-10-29] MEDS: IPRATROPIUM/ALBUTEROL 0.5-3(2.5)MG/3ML NEB HHN SCH ×6 (01:00→21:27)
[2018-10-29] MEDS: METHYLPREDNISOLONE SOD SUCC 40 MG/ML VIAL IV SCH ×3 (04:10→20:57)
[2018-10-29] MEDS: BLOOD SUGAR DIAGNOSTIC STRIP TEST SCH ×3 (06:00→17:23)
[2018-10-29] MEDS: INSULIN LISPRO 100 UNITS/ML SUBCUT SCH ×3 (06:21→17:24)
[2018-10-29] MEDS: LANSOPRAZOLE 30MG DR CAPSULE NG SCH (06:21)
[2018-10-29] MEDS: DOBUTAMINE 250MG PREMIX 250 ML IV SCH (08:15)
[2018-10-29] MEDS: ENOXAPARIN 40MG/0.4ML SYR SUBCUT SCH ×2 (09:11→21:30)
[2018-10-29] MEDS: AMLODIPINE 5MG TABLET PO SCH ×2 (09:12→21:30)
[2018-10-29] MEDS: CEFTRIAXONE 1 G PREMIX 50 ML IV SCH (09:35)
[2018-10-29 12:43] LABS: T4 FREE 0.58 ng/dL (0.76-1.46)
[2018-10-29] MEDS: THIAMINE HCL 100MG TABLET PO SCH (12:48)
[2018-10-29] MEDS: MULTIVITAMINS,THER W-MINERALS TABLET PO SCH (12:48)
[2018-10-29] MEDS: FOLIC ACID 1MG TABLET PO SCH (12:52)
[2018-10-29 12:54] LABS: FOLIC ACID (FOLATE) SERUM 7.4 ng/mL (>5.38)
[2018-10-29 15:03] LABS: CHLORIDE 100 mEq/L (98-107)
[2018-10-29 15:04] LABS: HEMATOCRIT. 44.4 % (42.0-52.0); HEMOGLOBIN. 15.3 g/dL (14.0-18.0); MEAN CORPUSCULAR HEMOGLOBIN 32.4 pg (28.0-32.0); MEAN CORPUSCULAR VOLUME 93.8 fL (80.0-94.0); MEAN PLATELET VOLUME 6.8 fl (7.4-10.4); PLATELET 179 x1000/uL (130-400); RED BLOOD CELL COUNT 4.73 mill/uL (4.7-6.1); RED CELL DISTRIBUTION WIDTH 13.5 % (11.6-14.6)
[2018-10-29] MEDS: GABAPENTIN 100MG CAPSULE PO SCH ×2 (15:08→21:29)
[2018-10-29 15:44] LABS: PLATELET ESTIMATE NORMAL
[2018-10-29] MEDS: LIDOCAINE 5% PATCH TOP SCH (16:52)
[2018-10-29] MEDS: ATORVASTATIN CALCIUM 10MG TABLET PO SCH (21:29)
[2018-10-30] VITALS (19 sets, daily range): BP systolic 119–160; BP diastolic 66–108
[2018-10-30] MEDS: INSULIN LISPRO 100 UNITS/ML SUBCUT SCH ×4 (00:16→18:00)
[2018-10-30] MEDS: IPRATROPIUM/ALBUTEROL 0.5-3(2.5)MG/3ML NEB HHN SCH ×6 (04:49→23:00)
[2018-10-30] MEDS: METHYLPREDNISOLONE SOD SUCC 40 MG/ML VIAL IV SCH (05:00)
[2018-10-30 06:00] LABS: CHLORIDE 102 mEq/L (98-107)
[2018-10-30] MEDS: BLOOD SUGAR DIAGNOSTIC STRIP TEST SCH ×4 (06:00→18:09)
[2018-10-30] MEDS: GABAPENTIN 100MG CAPSULE PO SCH ×3 (06:09→21:28)
[2018-10-30] MEDS: LANSOPRAZOLE 30MG DR CAPSULE NG SCH (06:09)
[2018-10-30 06:20] LABS: HEMATOCRIT. 45.8 % (42.0-52.0); HEMOGLOBIN. 15.9 g/dL (14.0-18.0); MEAN CORPUSCULAR HEMOGLOBIN 32.5 pg (28.0-32.0); MEAN CORPUSCULAR VOLUME 93.8 fL (80.0-94.0); MEAN PLATELET VOLUME 6.8 fl (7.4-10.4); PLATELET 188 x1000/uL (130-400); RED BLOOD CELL COUNT 4.88 mill/uL (4.7-6.1); RED CELL DISTRIBUTION WIDTH 13.5 % (11.6-14.6)
[2018-10-30] MEDS: AMLODIPINE 5MG TABLET PO SCH ×2 (08:34→21:30)
[2018-10-30] MEDS: FOLIC ACID 1MG TABLET PO SCH (08:34)
[2018-10-30] MEDS: ENOXAPARIN 40MG/0.4ML SYR SUBCUT SCH (08:34)
[2018-10-30] MEDS: THIAMINE HCL 100MG TABLET PO SCH (08:34)
[2018-10-30] MEDS: MULTIVITAMINS,THER W-MINERALS TABLET PO SCH (08:34)
[2018-10-30] MEDS: LIDOCAINE 5% PATCH TOP SCH (08:35)
[2018-10-30 09:43] LABS: PLATELET ESTIMATE NORMAL
[2018-10-30] MEDS: CEFTRIAXONE 1 G PREMIX 50 ML IV SCH (11:23)
[2018-10-30] MEDS: LEVETIRACETAM 500MG TABLET PO SCH ×2 (12:38→21:29)
[2018-10-30] MEDS: HYDRALAZINE HCL 50MG TABLET PO SCH ×3 (12:38→21:29)
[2018-10-30] MEDS: PREDNISONE 20MG TABLET PO SCH (17:17)
[2018-10-30] MEDS: ATORVASTATIN CALCIUM 10MG TABLET PO SCH (21:29)
[2018-10-31] VITALS (18 sets, daily range): BP systolic 101–152; BP diastolic 24–93
[2018-10-31] MEDS: BLOOD SUGAR DIAGNOSTIC STRIP TEST SCH ×5 (00:06→21:08)
[2018-10-31] MEDS: INSULIN LISPRO 100 UNITS/ML SUBCUT SCH ×5 (00:07→21:07)
[2018-10-31] MEDS: IPRATROPIUM/ALBUTEROL 0.5-3(2.5)MG/3ML NEB HHN SCH ×5 (04:59→21:13)
[2018-10-31] MEDS: LANSOPRAZOLE 30MG DR CAPSULE NG SCH (06:07)
[2018-10-31] MEDS: HYDRALAZINE HCL 50MG TABLET PO SCH ×3 (06:07→23:04)
[2018-10-31] MEDS: GABAPENTIN 100MG CAPSULE PO SCH ×3 (06:08→23:04)
[2018-10-31 07:19] LABS: EOSINOPHILS % 0.1 % (0.0-5.0); HEMATOCRIT. 49.4 % (42.0-52.0); HEMOGLOBIN. 16.9 g/dL (14.0-18.0); LYMPHOCYTES % 11.1 % (20.0-50.0); MEAN CORPUSCULAR HEMOGLOBIN 31.9 pg (28.0-32.0); MEAN PLATELET VOLUME 6.8 fl (7.4-10.4); MONOCYTES % 7.1 % (2.0-8.0); NEUTROPHILS % 81.7 % (40.0-76.0); PLATELET 181 x1000/uL (130-400); RED BLOOD CELL COUNT 5.31 mill/uL (4.7-6.1); RED CELL DISTRIBUTION WIDTH 13.6 % (11.6-14.6)
[2018-10-31 07:37] LABS: CHLORIDE 101 mEq/L (98-107)
[2018-10-31] MEDS: FOLIC ACID 1MG TABLET PO SCH (08:33)
[2018-10-31] MEDS: MULTIVITAMINS,THER W-MINERALS TABLET PO SCH (08:33)
[2018-10-31] MEDS: PREDNISONE 20MG TABLET PO SCH ×2 (08:33→17:41)
[2018-10-31] MEDS: AMLODIPINE 5MG TABLET PO SCH ×2 (08:33→21:00)
[2018-10-31] MEDS: LEVETIRACETAM 500MG TABLET PO SCH ×2 (08:33→21:07)
[2018-10-31] MEDS: THIAMINE HCL 100MG TABLET PO SCH (08:33)
[2018-10-31] MEDS: LIDOCAINE 5% PATCH TOP SCH (08:34)
[2018-10-31] MEDS ORDERED: LOSARTAN POTASSIUM 25 MG TABLET PO SCH (09:45)
[2018-10-31] MEDS: LOSARTAN POTASSIUM 25 MG TABLET PO SCH ×2 (09:56→21:00)
[2018-10-31] MEDS: INSULIN GLARGINE UD 100 UNITS/ML SYR SUBCUT SCH (10:16)
[2018-10-31] MEDS: ATORVASTATIN CALCIUM 10MG TABLET PO SCH (21:05)
[2018-11-01] VITALS (12 sets, daily range): BP systolic 106–154; BP diastolic 56–96
[2018-11-01] MEDS: IPRATROPIUM/ALBUTEROL 0.5-3(2.5)MG/3ML NEB HHN SCH ×7 (00:43→20:38)
[2018-11-01] MEDS: GABAPENTIN 100MG CAPSULE PO SCH ×3 (06:10→21:33)
[2018-11-01] MEDS: LANSOPRAZOLE 30MG DR CAPSULE NG SCH (06:11)
[2018-11-01] MEDS: BLOOD SUGAR DIAGNOSTIC STRIP TEST SCH ×4 (06:50→21:17)
[2018-11-01] MEDS: HYDRALAZINE HCL 50MG TABLET PO SCH ×3 (06:59→21:34)
[2018-11-01 07:21] LABS: CHLORIDE 104 mEq/L (98-107)
[2018-11-01 07:30] LABS: BASOPHILS % 0.1 % (0.0-2.0); HEMATOCRIT. 46.7 % (42.0-52.0); HEMOGLOBIN. 16.1 g/dL (14.0-18.0); LYMPHOCYTES % 8.5 % (20.0-50.0); MEAN CORPUSCULAR HEMOGLOBIN 32.4 pg (28.0-32.0); MEAN CORPUSCULAR VOLUME 93.7 fL (80.0-94.0); MEAN PLATELET VOLUME 6.9 fl (7.4-10.4); NEUTROPHILS % 87.4 % (40.0-76.0); PLATELET 173 x1000/uL (130-400); RED BLOOD CELL COUNT 4.99 mill/uL (4.7-6.1); RED CELL DISTRIBUTION WIDTH 13.9 % (11.6-14.6)
[2018-11-01] MEDS: THIAMINE HCL 100MG TABLET PO SCH (08:16)
[2018-11-01] MEDS: LEVETIRACETAM 500MG TABLET PO SCH ×2 (08:16→21:33)
[2018-11-01] MEDS: FOLIC ACID 1MG TABLET PO SCH (08:16)
[2018-11-01] MEDS: PREDNISONE 20MG TABLET PO SCH ×2 (08:16→17:30)
[2018-11-01] MEDS: INSULIN LISPRO 100 UNITS/ML SUBCUT SCH ×4 (08:17→21:36)
[2018-11-01] MEDS: AMLODIPINE 5MG TABLET PO SCH ×2 (08:17→21:00)
[2018-11-01] MEDS: INSULIN GLARGINE UD 100 UNITS/ML SYR SUBCUT SCH (08:19)
[2018-11-01] MEDS: MULTIVITAMINS,THER W-MINERALS TABLET PO SCH (08:21)
[2018-11-01] MEDS: LIDOCAINE 5% PATCH TOP SCH (08:25)
[2018-11-01] MEDS ORDERED: MORPHINE SULFATE 2 MG/ML CPJ (NOT FOR IM USE) IV PRN (09:15)
[2018-11-01] MEDS: LOSARTAN POTASSIUM 25 MG TABLET PO SCH ×2 (10:01→21:00)
[2018-11-01] MEDS: ATORVASTATIN CALCIUM 10MG TABLET PO SCH (21:33)
[2018-11-02] VITALS (13 sets, daily range): BP systolic 81–145; BP diastolic 19–91
[2018-11-02] MEDS: IPRATROPIUM/ALBUTEROL 0.5-3(2.5)MG/3ML NEB HHN SCH ×5 (04:40→20:50)
[2018-11-02] MEDS: GABAPENTIN 100MG CAPSULE PO SCH ×3 (06:05→21:40)
[2018-11-02] MEDS: LANSOPRAZOLE 30MG DR CAPSULE NG SCH (06:05)
[2018-11-02] MEDS: HYDRALAZINE HCL 50MG TABLET PO SCH ×3 (06:06→22:00)
[2018-11-02] MEDS: BLOOD SUGAR DIAGNOSTIC STRIP TEST SCH ×4 (07:30→21:09)
[2018-11-02] MEDS: MULTIVITAMINS,THER W-MINERALS TABLET PO SCH (08:54)
[2018-11-02] MEDS: LEVETIRACETAM 500MG TABLET PO SCH ×2 (08:54→21:13)
[2018-11-02] MEDS: LOSARTAN POTASSIUM 25 MG TABLET PO SCH ×2 (08:54→21:12)
[2018-11-02] MEDS: FOLIC ACID 1MG TABLET PO SCH (08:54)
[2018-11-02] MEDS: INSULIN LISPRO 100 UNITS/ML SUBCUT SCH ×4 (08:55→21:13)
[2018-11-02] MEDS: AMLODIPINE 5MG TABLET PO SCH ×2 (08:55→21:12)
[2018-11-02] MEDS: LIDOCAINE 5% PATCH TOP SCH (08:56)
[2018-11-02] MEDS: PREDNISONE 20MG TABLET PO SCH ×2 (08:56→16:59)
[2018-11-02] MEDS: THIAMINE HCL 100MG TABLET PO SCH (08:56)
[2018-11-02] MEDS: INSULIN GLARGINE UD 100 UNITS/ML SYR SUBCUT SCH (08:57)
[2018-11-02] MEDS ORDERED: ZOLPIDEM TARTRATE 5MG TABLET PO PRN (09:30)
[2018-11-02] MEDS: ATORVASTATIN CALCIUM 10MG TABLET PO SCH (21:12)
[2018-11-03] VITALS (12 sets, daily range): BP systolic 111–155; BP diastolic 62–89
[2018-11-03] MEDS: IPRATROPIUM/ALBUTEROL 0.5-3(2.5)MG/3ML NEB HHN SCH ×6 (00:41→20:33)
[2018-11-03] MEDS: LANSOPRAZOLE 30MG DR CAPSULE NG SCH (06:34)
[2018-11-03] MEDS: GABAPENTIN 100MG CAPSULE PO SCH ×3 (06:34→22:14)
[2018-11-03] MEDS: BLOOD SUGAR DIAGNOSTIC STRIP TEST SCH ×4 (06:34→21:33)
[2018-11-03] MEDS: HYDRALAZINE HCL 50MG TABLET PO SCH ×3 (06:34→22:15)
[2018-11-03] MEDS: INSULIN LISPRO 100 UNITS/ML SUBCUT SCH ×4 (08:07→21:33)
[2018-11-03] MEDS: LOSARTAN POTASSIUM 25 MG TABLET PO SCH ×2 (09:06→21:00)
[2018-11-03] MEDS: FOLIC ACID 1MG TABLET PO SCH (09:06)
[2018-11-03] MEDS: LEVETIRACETAM 500MG TABLET PO SCH ×2 (09:06→21:36)
[2018-11-03] MEDS: MULTIVITAMINS,THER W-MINERALS TABLET PO SCH (09:07)
[2018-11-03] MEDS: PREDNISONE 20MG TABLET PO SCH (09:07)
[2018-11-03] MEDS: AMLODIPINE 5MG TABLET PO SCH ×2 (09:07→21:00)
[2018-11-03] MEDS: THIAMINE HCL 100MG TABLET PO SCH (09:08)
[2018-11-03] MEDS: LIDOCAINE 5% PATCH TOP SCH (09:09)
[2018-11-03] MEDS ORDERED: HYDRALAZINE 20MG/ML VIAL IV PRN (10:45)
[2018-11-03] MEDS: INSULIN GLARGINE UD 100 UNITS/ML SYR SUBCUT SCH (11:33)
[2018-11-03] MEDS: DIPHENHYDRAMINE 50MG/ML VIAL IV PRN (12:58)
[2018-11-03] MEDS ORDERED: ZOLPIDEM TARTRATE 5MG TABLET PO SCH (21:00)
[2018-11-03] MEDS: ATORVASTATIN CALCIUM 10MG TABLET PO SCH (21:32)
[2018-11-04] VITALS (8 sets, daily range): BP systolic 97–140; BP diastolic 52–93
[2018-11-04] MEDS: IPRATROPIUM/ALBUTEROL 0.5-3(2.5)MG/3ML NEB HHN SCH ×5 (00:33→15:00)
[2018-11-04] MEDS: GABAPENTIN 100MG CAPSULE PO SCH ×2 (06:25→13:33)
[2018-11-04] MEDS: HYDRALAZINE HCL 50MG TABLET PO SCH ×2 (06:26→13:33)
[2018-11-04] MEDS: INSULIN LISPRO 100 UNITS/ML SUBCUT SCH ×2 (06:44→12:32)
[2018-11-04] MEDS: BLOOD SUGAR DIAGNOSTIC STRIP TEST SCH ×3 (06:44→16:33)
[2018-11-04 06:55] LABS: BASOPHILS % 0.1 % (0.0-2.0); CHLORIDE 103 mEq/L (98-107); EOSINOPHILS % 0.2 % (0.0-5.0); HEMATOCRIT. 46.3 % (42.0-52.0); HEMOGLOBIN. 16.2 g/dL (14.0-18.0); LYMPHOCYTES % 27.1 % (20.0-50.0); MEAN CORPUSCULAR HEMOGLOBIN 32.7 pg (28.0-32.0); MEAN CORPUSCULAR VOLUME 93.6 fL (80.0-94.0); MEAN PLATELET VOLUME 6.7 fl (7.4-10.4); MONOCYTES % 6.2 % (2.0-8.0); NEUTROPHILS % 66.4 % (40.0-76.0); PLATELET 149 x1000/uL (130-400); RED BLOOD CELL COUNT 4.95 mill/uL (4.7-6.1); RED CELL DISTRIBUTION WIDTH 13.6 % (11.6-14.6)
[2018-11-04] MEDS ORDERED: PREDNISONE 20MG TABLET PO SCH (07:20)
[2018-11-04] MEDS: MULTIVITAMINS,THER W-MINERALS TABLET PO SCH (08:44)
[2018-11-04] MEDS: LEVETIRACETAM 500MG TABLET PO SCH (08:45)
[2018-11-04] MEDS: THIAMINE HCL 100MG TABLET PO SCH (08:45)
[2018-11-04] MEDS: FOLIC ACID 1MG TABLET PO SCH (08:45)
[2018-11-04] MEDS: LOSARTAN POTASSIUM 25 MG TABLET PO SCH (08:50)
[2018-11-04] MEDS: AMLODIPINE 5MG TABLET PO SCH (08:50)
[2018-11-04] MEDS: LIDOCAINE 5% PATCH TOP SCH (08:54)
[2018-11-04] MEDS ORDERED: FAMOTIDINE 20MG TABLET PO SCH (09:00)
[2018-11-04] MEDS: INSULIN GLARGINE UD 100 UNITS/ML SYR SUBCUT SCH (10:05)
== END 2018-11-04 17:15 | DRG 816 ==
LOC: ER 01:07 → CVICU 03:34 → ENRESERV 04:19 → 3WST 10-28 16:15
PROVIDERS: ADMIT Internal Medicine; ATTEND Internal Medicine
PROC: 5A1955Z Respiratory Ventilation, Greater than 96 Consecutive Hours (ICD-10-PCS; principal; 2018-10-17)
PROC: 0BH17EZ Insertion of Endotracheal Airway into Trachea, Via Natural or Artificial Opening (ICD-10-PCS; 2018-10-17)
PROC: 0B21XEZ Change Endotracheal Airway in Trachea, External Approach (ICD-10-PCS; 2018-10-21)
PROC: 02HV33Z Insertion of Infusion Device into Superior Vena Cava, Percutaneous Approach (ICD-10-PCS; 2018-10-23)
PROC: B548ZZA Ultrasonography of Superior Vena Cava, Guidance (ICD-10-PCS; 2018-10-23)
DX: T59.811A Toxic effect of smoke, accidental (unintentional), initial encounter (principal); J69.8 Pneumonitis due to inhalation of other solids and liquids; G92 Toxic encephalopathy; J96.02 Acute respiratory failure with hypercapnia; J96.01 Acute respiratory failure with hypoxia; I62.00 Nontraumatic subdural hemorrhage, unspecified; E44.0 Moderate protein-calorie malnutrition; N17.9 Acute kidney failure, unspecified; E66.01 Morbid (severe) obesity due to excess calories; M48.02 Spinal stenosis, cervical region; I82.409 Acute embolism and thrombosis of unspecified deep veins of unspecified lower extremity; E83.51 Hypocalcemia; I11.9 Hypertensive heart disease without heart failure; E11.9 Type 2 diabetes mellitus without complications; M19.90 Unspecified osteoarthritis, unspecified site; E87.5 Hyperkalemia; F14.10 Cocaine abuse, uncomplicated; F15.10 Other stimulant abuse, uncomplicated; F17.210 Nicotine dependence, cigarettes, uncomplicated; F20.9 Schizophrenia, unspecified; I49.3 Ventricular premature depolarization; J98.11 Atelectasis; L60.0 Ingrowing nail; L60.3 Nail dystrophy; R26.9 Unspecified abnormalities of gait and mobility; M47.812 Spondylosis without myelopathy or radiculopathy, cervical region; X00.0XXA Exposure to flames in uncontrolled fire in building or structure, initial encounter; J70.5 Respiratory conditions due to smoke inhalation; M50.31 Other cervical disc degeneration, high cervical region; Z79.4 Long term (current) use of insulin; Z99.3 Dependence on wheelchair; Z87.828 Personal history of other (healed) physical injury and trauma; Z88.5 Allergy status to narcotic agent; Z88.8 Allergy status to other drugs, medicaments and biological substances; Z88.6 Allergy status to analgesic agent; Z68.38 Body mass index [BMI] 38.0-38.9, adult; Z79.899 Other long term (current) drug therapy; Y93.89 Activity, other specified; Y92.89 Other specified places as the place of occurrence of the external cause; Y99.8 Other external cause status; J44.1 Chronic obstructive pulmonary disease with (acute) exacerbation
CPT/HCPCS: 36415; 36600; 70551; 71045; 72141; 76937; 80048; 80061; 80305; 80320; 82140; 82375; 82550; 82553; 82607; 82746; 82805; 82962; 83036; 83735; 83880; 84439; 84443; 84478; 84481; 84484; 85379; 87070; 92523; 92610; 93005; 93306; 93880; 93970; 94003; 94640; 96365; 96375; 97110; 97162; 97164; 97166; 97530; 99291; 99292; C1725; C9113; J0330; J0360; J0461; J0696; J1200; J1250; J1265; J1650; J1815; J1940; J1956; J2060; J2250; J2704; J2920; J2930; J3010; J3490; J7030; J7042; J7060; J7512; J7608; J7620; G0480

== ENCOUNTER 2019-01-05 01:48 | Inpatient (IN) | payer MEDICARE, MEDICAID ==
[~2019-01-05] VITALS: Ht 177.8 cm; Wt 117.2 kg
[~2019-01-05 01:48] MED LIST changes: -ETOMIDATE 2MG/ML 10ML VIAL IV ONE; -SUCCINYLCHOLINE CHLORIDE 200MG/10ML IV ONE
[2019-01-05 03:57] LABS: BASOPHILS % 0.6 % (0.0-2.0); EOSINOPHILS % 1.1 % (0.0-5.0); LYMPHOCYTES % 22.8 % (20.0-50.0); MEAN CORPUSCULAR HEMOGLOBIN 32.9 pg (28.0-32.0); MEAN CORPUSCULAR VOLUME 94.3 fL (80.0-94.0); MEAN PLATELET VOLUME 6.4 fl (7.4-10.4); MONOCYTES % 8.6 % (2.0-8.0); NEUTROPHILS % 66.9 % (40.0-76.0); PLATELET 222 x1000/uL (130-400); RED BLOOD CELL COUNT 4.25 mill/uL (4.7-6.1); RED CELL DISTRIBUTION WIDTH 14.2 % (11.6-14.6)
[2019-01-05 04:00] LABS: CHLORIDE 108 mEq/L (98-107)
[2019-01-05 04:01] LABS: PROTHROMBIN TIME 10.1 sec (9.6-11.0)
[2019-01-05 04:55] LABS: CLARITY URINE CLEAR (CLEAR); COLOR URINE YELLOW (YELLOW); KETONES URINE NEGATIVE (NEGATIVE); LEUKOCYTE ESTERASE URINE 1+ (NEGATIVE); NITRITE URINE NEGATIVE (NEGATIVE); OCCULT BLOOD URINE NEGATIVE (NEGATIVE); PH URINE 5.5 (4.5-8.0); PROTEIN URINE TRACE (NEGATIVE); SPECIFIC GRAVITY URINE 1.019 (1.005-1.030)
[2019-01-05 05:03] LABS: *AMPHETAMINES SCREEN URINE PRESUMTIVE POSITIVE (NEGATIVE); *BARBITURATES SCREEN URINE NEGATIVE (NEGATIVE); *COCAINE SCREEN URINE NEGATIVE (NEGATIVE); CANNABINOID URINE SCREEN NEGATIVE (NEGATIVE); OPIATES URINE SCREEN NEGATIVE (NEGATIVE); PHENCYCLIDINE URINE SCREEN NEGATIVE (NEGATIVE)
[2019-01-05 05:04] LABS: *BENZODIAZEPINES SCREEN URINE NEGATIVE (NEGATIVE)
[2019-01-05 05:06] LABS: METHADONE URINE SCREEN NEGATIVE (NEGATIVE)
[2019-01-05] MEDS ORDERED: TRAMADOL 50MG TABLET PO ONE (05:15)
[2019-01-05] MEDS ORDERED: ACETAMINOPHEN 325MG TABLET PO PRN (20:15)
[2019-01-05] MEDS ORDERED: ONDANSETRON HCL 4MG/2ML INJ IV PRN (20:15)
[2019-01-05] MEDS ORDERED: DEXTROSE 50% WATER 50ML SYRINGE IV PRN (20:15)
[2019-01-05] MEDS ORDERED: HYDRALAZINE 20MG/ML VIAL IV PRN (20:15)
[2019-01-05] MEDS ORDERED: CLONIDINE 0.1MG TABLET PO PRN (20:15)
[2019-01-05] MEDS: SODIUM CHLORIDE 0.9% INJ 3ML FLUSH IVF SCH (22:00)
[2019-01-05] MEDS: INSULIN LISPRO 100 UNITS/ML SUBCUT SCH (23:00)
[2019-01-05] MEDS: BLOOD SUGAR DIAGNOSTIC STRIP TEST SCH (23:00)
[2019-01-05] MEDS: GABAPENTIN 300MG CAPSULE PO SCH (23:00)
[2019-01-05 23:04] VITALS: BP 123/55
[2019-01-06] MEDS: GABAPENTIN 300MG CAPSULE PO SCH ×4 (06:00→22:11)
[2019-01-06] MEDS: SODIUM CHLORIDE 0.9% INJ 3ML FLUSH IVF SCH ×3 (06:00→22:11)
[2019-01-06] MEDS: BLOOD SUGAR DIAGNOSTIC STRIP TEST SCH ×4 (06:22→21:00)
[2019-01-06] MEDS: INSULIN LISPRO 100 UNITS/ML SUBCUT SCH ×4 (07:50→21:00)
[2019-01-06] MEDS: TRAMADOL 50MG TABLET PO PRN ×2 (07:56→16:20)
[2019-01-06 08:16] VITALS: BP 164/94
[2019-01-06] MEDS: AMLODIPINE 10MG TABLET PO SCH (08:19)
[2019-01-06] MEDS: METFORMIN HCL 500MG TABLET PO SCH ×2 (08:21→17:50)
[2019-01-06] MEDS: MAGNESIUM/ALUMINUM HYDROXIDE/SIMETHICONE 30ML UDC PO SCH (09:00)
[2019-01-06 12:00] VITALS: BP 114/77
[2019-01-06 16:00] VITALS: BP 147/83
[2019-01-06] MEDS: ASPIRIN 81MG EC TABLET PO SCH (16:04)
[2019-01-06] MEDS: LOSARTAN POTASSIUM 50 MG TABLET PO SCH ×2 (16:04→22:10)
[2019-01-06 20:00] VITALS: BP 124/71
[2019-01-07] VITALS: BP 126/69
[2019-01-07 04:00] VITALS: BP 134/77
[2019-01-07] MEDS: GABAPENTIN 300MG CAPSULE PO SCH ×3 (06:00→22:04)
[2019-01-07] MEDS: SODIUM CHLORIDE 0.9% INJ 3ML FLUSH IVF SCH ×3 (06:00→22:00)
[2019-01-07] MEDS: BLOOD SUGAR DIAGNOSTIC STRIP TEST SCH ×4 (06:46→21:00)
[2019-01-07 07:03] LABS: CHLORIDE 110 mEq/L (98-107)
[2019-01-07 07:19] LABS: BASOPHILS % 0.4 % (0.0-2.0); EOSINOPHILS % 3.1 % (0.0-5.0); HEMATOCRIT. 39.8 % (42.0-52.0); HEMOGLOBIN. 13.7 g/dL (14.0-18.0); LYMPHOCYTES % 41.3 % (20.0-50.0); MEAN CORPUSCULAR HEMOGLOBIN 32.9 pg (28.0-32.0); MEAN CORPUSCULAR VOLUME 95.5 fL (80.0-94.0); MEAN PLATELET VOLUME 6.5 fl (7.4-10.4); MONOCYTES % 8.4 % (2.0-8.0); NEUTROPHILS % 46.8 % (40.0-76.0); PLATELET 230 x1000/uL (130-400); RED BLOOD CELL COUNT 4.17 mill/uL (4.7-6.1); RED CELL DISTRIBUTION WIDTH 14.5 % (11.6-14.6)
[2019-01-07] MEDS: INSULIN LISPRO 100 UNITS/ML SUBCUT SCH ×4 (07:50→21:00)
[2019-01-07 08:00] VITALS: BP 127/72
[2019-01-07] MEDS: METFORMIN HCL 500MG TABLET PO SCH ×2 (08:20→18:04)
[2019-01-07] MEDS: TRAMADOL 50MG TABLET PO PRN ×3 (08:21→22:06)
[2019-01-07] MEDS: ASPIRIN 81MG EC TABLET PO SCH (08:21)
[2019-01-07] MEDS: AMLODIPINE 10MG TABLET PO SCH (08:22)
[2019-01-07] MEDS: LOSARTAN POTASSIUM 50 MG TABLET PO SCH ×2 (08:22→22:05)
[2019-01-07] MEDS: MAGNESIUM/ALUMINUM HYDROXIDE/SIMETHICONE 30ML UDC PO SCH (08:25)
[2019-01-07 12:00] VITALS: BP 114/71
[2019-01-07 16:00] VITALS: BP 133/85
[2019-01-07 20:30] VITALS: BP 114/72
[2019-01-08] VITALS: BP 113/73
[2019-01-08 04:00] VITALS: BP 120/79
[2019-01-08] MEDS: GABAPENTIN 300MG CAPSULE PO SCH ×3 (05:46→21:12)
[2019-01-08] MEDS: SODIUM CHLORIDE 0.9% INJ 3ML FLUSH IVF SCH ×3 (06:00→21:12)
[2019-01-08 06:56] LABS: BASOPHILS % 0.4 % (0.0-2.0); HEMATOCRIT. 40.6 % (42.0-52.0); HEMOGLOBIN. 13.9 g/dL (14.0-18.0); LYMPHOCYTES % 43.4 % (20.0-50.0); MEAN CORPUSCULAR HEMOGLOBIN 32.5 pg (28.0-32.0); MEAN PLATELET VOLUME 6.4 fl (7.4-10.4); MONOCYTES % 8.6 % (2.0-8.0); NEUTROPHILS % 44.6 % (40.0-76.0); PLATELET 245 x1000/uL (130-400); RED BLOOD CELL COUNT 4.28 mill/uL (4.7-6.1); RED CELL DISTRIBUTION WIDTH 14.2 % (11.6-14.6)
[2019-01-08] MEDS: BLOOD SUGAR DIAGNOSTIC STRIP TEST SCH ×4 (07:17→21:05)
[2019-01-08] MEDS: INSULIN LISPRO 100 UNITS/ML SUBCUT SCH ×4 (07:17→21:00)
[2019-01-08 07:55] LABS: CHLORIDE 109 mEq/L (98-107)
[2019-01-08 08:00] VITALS: BP 121/76
[2019-01-08] MEDS: MAGNESIUM/ALUMINUM HYDROXIDE/SIMETHICONE 30ML UDC PO SCH (09:00)
[2019-01-08] MEDS: ASPIRIN 81MG EC TABLET PO SCH (09:16)
[2019-01-08] MEDS: LOSARTAN POTASSIUM 50 MG TABLET PO SCH ×2 (09:16→21:00)
[2019-01-08] MEDS: METFORMIN HCL 500MG TABLET PO SCH ×2 (09:16→18:36)
[2019-01-08] MEDS: AMLODIPINE 10MG TABLET PO SCH (09:22)
[2019-01-08] MEDS: TRAMADOL 50MG TABLET PO PRN ×2 (14:08→21:12)
[2019-01-08 19:40] VITALS: BP 108/77
[2019-01-09] VITALS: BP 127/68
[2019-01-09 03:30] VITALS: BP 120/78
[2019-01-09] MEDS: SODIUM CHLORIDE 0.9% INJ 3ML FLUSH IVF SCH ×3 (05:18→21:25)
[2019-01-09] MEDS: GABAPENTIN 300MG CAPSULE PO SCH ×3 (05:18→21:25)
[2019-01-09] MEDS: BLOOD SUGAR DIAGNOSTIC STRIP TEST SCH ×4 (06:41→21:25)
[2019-01-09] MEDS: INSULIN LISPRO 100 UNITS/ML SUBCUT SCH ×4 (07:50→21:00)
[2019-01-09 08:00] VITALS: BP 118/71
[2019-01-09] MEDS: MAGNESIUM/ALUMINUM HYDROXIDE/SIMETHICONE 30ML UDC PO SCH (09:00)
[2019-01-09] MEDS: ASPIRIN 81MG EC TABLET PO SCH (09:00)
[2019-01-09] MEDS: METFORMIN HCL 500MG TABLET PO SCH ×2 (09:43→18:36)
[2019-01-09] MEDS: LOSARTAN POTASSIUM 50 MG TABLET PO SCH ×2 (09:44→21:00)
[2019-01-09] MEDS: AMLODIPINE 10MG TABLET PO SCH (15:45)
[2019-01-09] MEDS: TRAMADOL 50MG TABLET PO PRN (15:46)
[2019-01-09 20:00] VITALS: BP 117/77
[2019-01-10] VITALS: BP_SYST 130; BP_SYST 137; BP_DIAS 74; BP_DIAS 80
[2019-01-10 04:00] VITALS: BP 137/74
[2019-01-10] MEDS: SODIUM CHLORIDE 0.9% INJ 3ML FLUSH IVF SCH ×3 (05:03→22:52)
[2019-01-10] MEDS: GABAPENTIN 300MG CAPSULE PO SCH ×3 (05:03→22:59)
[2019-01-10] MEDS: TRAMADOL 50MG TABLET PO PRN ×3 (05:03→17:20)
[2019-01-10] MEDS: BLOOD SUGAR DIAGNOSTIC STRIP TEST SCH ×4 (06:58→21:10)
[2019-01-10] MEDS: INSULIN LISPRO 100 UNITS/ML SUBCUT SCH ×4 (07:37→21:00)
[2019-01-10 08:00] VITALS: BP 130/81
[2019-01-10] MEDS: ASPIRIN 81MG EC TABLET PO SCH ×2 (09:00→09:04)
[2019-01-10] MEDS: MAGNESIUM/ALUMINUM HYDROXIDE/SIMETHICONE 30ML UDC PO SCH ×2 (09:00→09:05)
[2019-01-10] MEDS: AMLODIPINE 10MG TABLET PO SCH (09:04)
[2019-01-10] MEDS: METFORMIN HCL 500MG TABLET PO SCH ×2 (09:04→17:19)
[2019-01-10] MEDS: LOSARTAN POTASSIUM 50 MG TABLET PO SCH ×2 (09:04→21:00)
[2019-01-10 12:00] VITALS: BP 130/73
[2019-01-10 16:00] VITALS: BP 104/58
[2019-01-10 20:00] VITALS: BP 119/65
[2019-01-10] MEDS: DIPHENHYDRAMINE 50MG/ML VIAL IV PRN (23:13)
[2019-01-11] VITALS: BP 120/83
[2019-01-11 04:27] VITALS: BP 123/81
[2019-01-11] MEDS: BLOOD SUGAR DIAGNOSTIC STRIP TEST SCH ×4 (06:34→21:00)
[2019-01-11] MEDS: SODIUM CHLORIDE 0.9% INJ 3ML FLUSH IVF SCH ×3 (06:44→21:31)
[2019-01-11] MEDS: GABAPENTIN 300MG CAPSULE PO SCH ×3 (06:44→21:25)
[2019-01-11] MEDS: TRAMADOL 50MG TABLET PO PRN ×3 (06:45→21:25)
[2019-01-11] MEDS: INSULIN LISPRO 100 UNITS/ML SUBCUT SCH ×4 (07:37→21:00)
[2019-01-11 08:00] VITALS: BP_SYST 106; BP_SYST 147; BP_DIAS 71; BP_DIAS 81
[2019-01-11] MEDS: METFORMIN HCL 500MG TABLET PO SCH ×2 (08:08→16:58)
[2019-01-11] MEDS: LOSARTAN POTASSIUM 50 MG TABLET PO SCH ×2 (08:08→21:00)
[2019-01-11] MEDS: AMLODIPINE 10MG TABLET PO SCH (08:09)
[2019-01-11] MEDS: MAGNESIUM/ALUMINUM HYDROXIDE/SIMETHICONE 30ML UDC PO SCH (08:10)
[2019-01-11] MEDS: ASPIRIN 81MG EC TABLET PO SCH (08:10)
[2019-01-11 12:00] VITALS: BP 106/71
[2019-01-11 16:00] VITALS: BP 101/60
[2019-01-11 20:00] VITALS: BP 128/77
[2019-01-11] MEDS: DIPHENHYDRAMINE 50MG/ML VIAL IV PRN (21:26)
[2019-01-12] VITALS: BP 122/73
[2019-01-12 04:00] VITALS: BP 106/62
[2019-01-12] MEDS: GABAPENTIN 300MG CAPSULE PO SCH ×3 (05:35→21:03)
[2019-01-12] MEDS: SODIUM CHLORIDE 0.9% INJ 3ML FLUSH IVF SCH ×3 (05:37→21:03)
[2019-01-12] MEDS: TRAMADOL 50MG TABLET PO PRN ×3 (06:00→21:03)
[2019-01-12] MEDS: BLOOD SUGAR DIAGNOSTIC STRIP TEST SCH ×4 (07:06→21:02)
[2019-01-12] MEDS: INSULIN LISPRO 100 UNITS/ML SUBCUT SCH ×4 (07:07→21:00)
[2019-01-12 08:00] VITALS: BP 144/78
[2019-01-12] MEDS: MAGNESIUM/ALUMINUM HYDROXIDE/SIMETHICONE 30ML UDC PO SCH ×2 (08:29→08:32)
[2019-01-12] MEDS: LOSARTAN POTASSIUM 50 MG TABLET PO SCH ×2 (08:30→20:50)
[2019-01-12] MEDS: METFORMIN HCL 500MG TABLET PO SCH ×2 (08:30→17:36)
[2019-01-12] MEDS: AMLODIPINE 10MG TABLET PO SCH (08:30)
[2019-01-12 12:00] VITALS: BP 126/61
[2019-01-12] MEDS: DIPHENHYDRAMINE 50MG/ML VIAL IV PRN ×2 (13:23→21:14)
[2019-01-12 20:00] VITALS: BP 126/69
[2019-01-13] VITALS: BP 115/74
[2019-01-13 04:00] VITALS: BP 110/63
[2019-01-13] MEDS: GABAPENTIN 300MG CAPSULE PO SCH ×3 (06:37→21:48)
[2019-01-13] MEDS: TRAMADOL 50MG TABLET PO PRN ×2 (06:39→21:50)
[2019-01-13] MEDS: SODIUM CHLORIDE 0.9% INJ 3ML FLUSH IVF SCH ×3 (06:39→21:50)
[2019-01-13] MEDS: BLOOD SUGAR DIAGNOSTIC STRIP TEST SCH ×4 (06:46→21:50)
[2019-01-13] MEDS: DIPHENHYDRAMINE 50MG/ML VIAL IV PRN ×3 (07:07→22:10)
[2019-01-13] MEDS: INSULIN LISPRO 100 UNITS/ML SUBCUT SCH ×4 (07:50→21:00)
[2019-01-13 08:00] VITALS: BP 112/72
[2019-01-13] MEDS: LOSARTAN POTASSIUM 50 MG TABLET PO SCH ×2 (08:56→21:49)
[2019-01-13] MEDS: METFORMIN HCL 500MG TABLET PO SCH ×2 (08:57→18:21)
[2019-01-13] MEDS: AMLODIPINE 10MG TABLET PO SCH (08:57)
[2019-01-13] MEDS: MAGNESIUM/ALUMINUM HYDROXIDE/SIMETHICONE 30ML UDC PO SCH (09:00)
[2019-01-13 11:50] VITALS: BP 112/76
[2019-01-13 12:40] LABS: CHLORIDE 106 mEq/L (98-107)
[2019-01-13 15:55] VITALS: BP 109/57
[2019-01-13 19:59] VITALS: BP 126/71
[2019-01-13 23:08] LABS: CLARITY URINE CLEAR (CLEAR); COLOR URINE YELLOW (YELLOW); KETONES URINE NEGATIVE (NEGATIVE); LEUKOCYTE ESTERASE URINE 1+ (NEGATIVE); NITRITE URINE NEGATIVE (NEGATIVE); OCCULT BLOOD URINE NEGATIVE (NEGATIVE); PROTEIN URINE NEGATIVE (NEGATIVE); SPECIFIC GRAVITY URINE 1.017 (1.005-1.030)
[2019-01-14 00:05] VITALS: BP 112/78
[2019-01-14 04:00] VITALS: BP 107/59
[2019-01-14] MEDS: SODIUM CHLORIDE 0.9% INJ 3ML FLUSH IVF SCH ×3 (06:33→21:24)
[2019-01-14] MEDS: GABAPENTIN 300MG CAPSULE PO SCH ×3 (06:33→21:22)
[2019-01-14] MEDS: DIPHENHYDRAMINE 50MG/ML VIAL IV PRN ×3 (06:36→21:25)
[2019-01-14] MEDS: BLOOD SUGAR DIAGNOSTIC STRIP TEST SCH ×4 (06:36→21:24)
[2019-01-14] MEDS: TRAMADOL 50MG TABLET PO PRN ×3 (06:36→21:23)
[2019-01-14 08:00] VITALS: BP 125/79
[2019-01-14] MEDS: AMLODIPINE 10MG TABLET PO SCH (09:00)
[2019-01-14] MEDS: LOSARTAN POTASSIUM 50 MG TABLET PO SCH ×2 (10:34→21:23)
[2019-01-14] MEDS: MAGNESIUM/ALUMINUM HYDROXIDE/SIMETHICONE 30ML UDC PO SCH (10:35)
[2019-01-14] MEDS: METFORMIN HCL 500MG TABLET PO SCH ×2 (10:35→17:50)
[2019-01-14] MEDS: INSULIN LISPRO 100 UNITS/ML SUBCUT SCH ×4 (10:37→21:00)
[2019-01-14 20:00] VITALS: BP 129/100
[2019-01-15] VITALS (7 sets, daily range): BP systolic 118–135; BP diastolic 61–84
[2019-01-15] MEDS: GABAPENTIN 300MG CAPSULE PO SCH ×3 (06:20→21:46)
[2019-01-15] MEDS: DIPHENHYDRAMINE 50MG/ML VIAL IV PRN ×4 (06:20→21:51)
[2019-01-15] MEDS: TRAMADOL 50MG TABLET PO PRN ×3 (06:22→21:49)
[2019-01-15] MEDS: BLOOD SUGAR DIAGNOSTIC STRIP TEST SCH ×4 (06:22→21:51)
[2019-01-15] MEDS: SODIUM CHLORIDE 0.9% INJ 3ML FLUSH IVF SCH ×3 (06:23→21:52)
[2019-01-15] MEDS: INSULIN LISPRO 100 UNITS/ML SUBCUT SCH ×4 (07:50→21:00)
[2019-01-15] MEDS: LOSARTAN POTASSIUM 25 MG TABLET PO SCH ×2 (09:00→21:46)
[2019-01-15] MEDS: MAGNESIUM HYDROXIDE 400MG/5ML 30ML UDC PO PRN (09:15)
[2019-01-15] MEDS: AMLODIPINE 10MG TABLET PO SCH (09:15)
[2019-01-15] MEDS: METFORMIN HCL 500MG TABLET PO SCH ×2 (09:16→16:59)
[2019-01-15] MEDS: MAGNESIUM/ALUMINUM HYDROXIDE/SIMETHICONE 30ML UDC PO SCH ×2 (09:19→09:21)
[2019-01-16 04:00] VITALS: BP 129/81
[2019-01-16] MEDS: GABAPENTIN 300MG CAPSULE PO SCH ×3 (06:36→21:53)
[2019-01-16] MEDS: SODIUM CHLORIDE 0.9% INJ 3ML FLUSH IVF SCH ×3 (06:36→21:54)
[2019-01-16] MEDS: DIPHENHYDRAMINE 50MG/ML VIAL IV PRN ×4 (06:36→21:54)
[2019-01-16] MEDS: BLOOD SUGAR DIAGNOSTIC STRIP TEST SCH ×4 (06:36→21:20)
[2019-01-16] MEDS: INSULIN LISPRO 100 UNITS/ML SUBCUT SCH ×4 (07:50→21:00)
[2019-01-16 08:00] VITALS: BP 132/64
[2019-01-16] MEDS: LOSARTAN POTASSIUM 25 MG TABLET PO SCH ×2 (08:32→21:00)
[2019-01-16] MEDS: AMLODIPINE 10MG TABLET PO SCH (08:32)
[2019-01-16] MEDS: METFORMIN HCL 500MG TABLET PO SCH ×2 (08:32→18:37)
[2019-01-16] MEDS: TRAMADOL 50MG TABLET PO PRN ×2 (10:52→18:42)
[2019-01-16 12:00] VITALS: BP 127/79
[2019-01-16 16:00] VITALS: BP 97/71
[2019-01-16 20:00] VITALS: BP 112/72
[2019-01-16] MEDS: ZOLPIDEM TARTRATE 5MG TABLET PO PRN (21:54)
[2019-01-17] VITALS: BP 118/71
[2019-01-17 04:00] VITALS: BP 121/70
[2019-01-17] MEDS: SODIUM CHLORIDE 0.9% INJ 3ML FLUSH IVF SCH ×3 (06:36→21:13)
[2019-01-17] MEDS: BLOOD SUGAR DIAGNOSTIC STRIP TEST SCH ×4 (06:36→20:13)
[2019-01-17] MEDS: GABAPENTIN 300MG CAPSULE PO SCH ×3 (06:37→21:13)
[2019-01-17] MEDS: DIPHENHYDRAMINE 50MG/ML VIAL IV PRN ×3 (06:40→20:12)
[2019-01-17] MEDS: INSULIN LISPRO 100 UNITS/ML SUBCUT SCH ×4 (07:50→20:13)
[2019-01-17 08:00] VITALS: BP 137/87
[2019-01-17] MEDS: AMLODIPINE 10MG TABLET PO SCH (08:36)
[2019-01-17] MEDS: TRAMADOL 50MG TABLET PO PRN ×3 (08:36→18:12)
[2019-01-17] MEDS: METFORMIN HCL 500MG TABLET PO SCH ×2 (08:36→18:12)
[2019-01-17] MEDS: LOSARTAN POTASSIUM 25 MG TABLET PO SCH ×2 (08:36→20:13)
[2019-01-17] MEDS: MAGNESIUM/ALUMINUM HYDROXIDE/SIMETHICONE 30ML UDC PO SCH (08:36)
[2019-01-17 20:17] VITALS: BP 136/79
[2019-01-17] MEDS: ZOLPIDEM TARTRATE 5MG TABLET PO PRN (21:13)
[2019-01-18 00:40] VITALS: BP 143/77
[2019-01-18 04:00] VITALS: BP 140/72
[2019-01-18] MEDS: GABAPENTIN 300MG CAPSULE PO SCH ×3 (05:13→22:02)
[2019-01-18] MEDS: SODIUM CHLORIDE 0.9% INJ 3ML FLUSH IVF SCH ×3 (05:14→22:07)
[2019-01-18] MEDS: TRAMADOL 50MG TABLET PO PRN ×4 (05:14→23:38)
[2019-01-18] MEDS: BLOOD SUGAR DIAGNOSTIC STRIP TEST SCH ×4 (07:05→21:00)
[2019-01-18] MEDS: INSULIN LISPRO 100 UNITS/ML SUBCUT SCH ×4 (07:50→21:00)
[2019-01-18 08:00] VITALS: BP 152/80
[2019-01-18] MEDS: AMLODIPINE 10MG TABLET PO SCH (09:16)
[2019-01-18] MEDS: MAGNESIUM/ALUMINUM HYDROXIDE/SIMETHICONE 30ML UDC PO SCH (09:16)
[2019-01-18] MEDS: LOSARTAN POTASSIUM 25 MG TABLET PO SCH ×2 (09:17→22:01)
[2019-01-18] MEDS: METFORMIN HCL 500MG TABLET PO SCH ×2 (09:17→17:50)
[2019-01-18] MEDS: DIPHENHYDRAMINE 50MG/ML VIAL IV PRN ×4 (09:17→22:01)
[2019-01-18 12:00] VITALS: BP 127/80
[2019-01-18 16:39] VITALS: BP 118/72
[2019-01-18 20:16] VITALS: BP 121/76
[2019-01-18] MEDS: ZOLPIDEM TARTRATE 5MG TABLET PO PRN (23:38)
[2019-01-19 00:10] VITALS: BP 125/80
[2019-01-19 04:00] VITALS: BP 110/70
[2019-01-19] MEDS: GABAPENTIN 300MG CAPSULE PO SCH ×3 (05:37→21:28)
[2019-01-19] MEDS: DIPHENHYDRAMINE 50MG/ML VIAL IV PRN ×4 (05:37→23:08)
[2019-01-19] MEDS: SODIUM CHLORIDE 0.9% INJ 3ML FLUSH IVF SCH ×3 (05:37→21:28)
[2019-01-19] MEDS: BLOOD SUGAR DIAGNOSTIC STRIP TEST SCH ×4 (06:37→21:25)
[2019-01-19] MEDS: INSULIN LISPRO 100 UNITS/ML SUBCUT SCH ×4 (07:50→21:00)
[2019-01-19 08:42] VITALS: BP 125/72
[2019-01-19] MEDS: METFORMIN HCL 500MG TABLET PO SCH ×2 (08:57→17:02)
[2019-01-19] MEDS: LOSARTAN POTASSIUM 25 MG TABLET PO SCH ×2 (08:58→21:28)
[2019-01-19] MEDS: AMLODIPINE 10MG TABLET PO SCH (08:58)
[2019-01-19] MEDS: MAGNESIUM/ALUMINUM HYDROXIDE/SIMETHICONE 30ML UDC PO SCH (08:58)
[2019-01-19] MEDS: TRAMADOL 50MG TABLET PO PRN ×3 (08:59→23:08)
[2019-01-19 12:30] VITALS: BP 119/76
[2019-01-19 16:40] VITALS: BP 134/81
[2019-01-19 20:00] VITALS: BP 132/76
[2019-01-19] MEDS: ZOLPIDEM TARTRATE 5MG TABLET PO PRN (23:08)
[2019-01-20 00:48] VITALS: BP 133/74
[2019-01-20 04:00] VITALS: BP 148/88
[2019-01-20] MEDS: DIPHENHYDRAMINE 50MG/ML VIAL IV PRN ×4 (04:15→21:34)
[2019-01-20] MEDS: GABAPENTIN 300MG CAPSULE PO SCH ×3 (05:40→21:31)
[2019-01-20] MEDS: TRAMADOL 50MG TABLET PO PRN ×3 (05:41→23:57)
[2019-01-20] MEDS: SODIUM CHLORIDE 0.9% INJ 3ML FLUSH IVF SCH ×3 (05:41→21:34)
[2019-01-20] MEDS: BLOOD SUGAR DIAGNOSTIC STRIP TEST SCH ×4 (06:34→21:31)
[2019-01-20] MEDS: INSULIN LISPRO 100 UNITS/ML SUBCUT SCH ×4 (07:50→21:44)
[2019-01-20 08:00] VITALS: BP 135/79
[2019-01-20] MEDS: MAGNESIUM/ALUMINUM HYDROXIDE/SIMETHICONE 30ML UDC PO SCH (09:00)
[2019-01-20] MEDS: METFORMIN HCL 500MG TABLET PO SCH ×2 (09:10→18:09)
[2019-01-20] MEDS: AMLODIPINE 10MG TABLET PO SCH (09:10)
[2019-01-20] MEDS: LOSARTAN POTASSIUM 25 MG TABLET PO SCH ×2 (09:11→21:34)
[2019-01-20 12:09] VITALS: BP 110/82
[2019-01-20 16:00] VITALS: BP 128/68
[2019-01-20 20:00] VITALS: BP 117/73
[2019-01-20] MEDS: ZOLPIDEM TARTRATE 5MG TABLET PO PRN (23:57)
[2019-01-21] VITALS (8 sets, daily range): BP systolic 98–130; BP diastolic 64–93
[2019-01-21] MEDS: GABAPENTIN 300MG CAPSULE PO SCH ×3 (06:42→21:18)
[2019-01-21] MEDS: SODIUM CHLORIDE 0.9% INJ 3ML FLUSH IVF SCH ×3 (06:42→21:19)
[2019-01-21] MEDS: DIPHENHYDRAMINE 50MG/ML VIAL IV PRN ×3 (06:45→21:19)
[2019-01-21] MEDS: BLOOD SUGAR DIAGNOSTIC STRIP TEST SCH ×4 (06:45→21:19)
[2019-01-21] MEDS: INSULIN LISPRO 100 UNITS/ML SUBCUT SCH ×4 (07:50→21:00)
[2019-01-21] MEDS: LOSARTAN POTASSIUM 25 MG TABLET PO SCH ×2 (08:42→21:00)
[2019-01-21] MEDS: MAGNESIUM HYDROXIDE 400MG/5ML 30ML UDC PO PRN (08:42)
[2019-01-21] MEDS: METFORMIN HCL 500MG TABLET PO SCH ×2 (08:43→17:17)
[2019-01-21] MEDS: AMLODIPINE 10MG TABLET PO SCH (08:43)
[2019-01-21] MEDS: MAGNESIUM/ALUMINUM HYDROXIDE/SIMETHICONE 30ML UDC PO SCH (08:48)
[2019-01-21] MEDS: TRAMADOL 50MG TABLET PO PRN ×2 (13:22→21:19)
[2019-01-21] MEDS ORDERED: LORAZEPAM 0.5MG TABLET PO SCH (14:50)
[2019-01-21] MEDS ORDERED: LORAZEPAM 2MG/ML CPJ IV SCH (14:50)
[2019-01-21] MEDS: ZOLPIDEM TARTRATE 5MG TABLET PO PRN (21:19)
[2019-01-22 04:00] VITALS: BP 125/84
[2019-01-22] MEDS: GABAPENTIN 300MG CAPSULE PO SCH ×3 (06:17→21:47)
[2019-01-22] MEDS: TRAMADOL 50MG TABLET PO PRN ×3 (06:17→21:48)
[2019-01-22] MEDS: DIPHENHYDRAMINE 50MG/ML VIAL IV PRN ×5 (06:17→22:49)
[2019-01-22] MEDS: BLOOD SUGAR DIAGNOSTIC STRIP TEST SCH ×4 (06:18→21:48)
[2019-01-22] MEDS: SODIUM CHLORIDE 0.9% INJ 3ML FLUSH IVF SCH ×3 (06:19→22:51)
[2019-01-22] MEDS: INSULIN LISPRO 100 UNITS/ML SUBCUT SCH ×4 (07:50→21:00)
[2019-01-22 08:00] VITALS: BP 126/65
[2019-01-22] MEDS: LOSARTAN POTASSIUM 25 MG TABLET PO SCH ×2 (09:00→21:48)
[2019-01-22] MEDS: METFORMIN HCL 500MG TABLET PO SCH ×2 (10:12→18:46)
[2019-01-22] MEDS: MAGNESIUM/ALUMINUM HYDROXIDE/SIMETHICONE 30ML UDC PO SCH (10:12)
[2019-01-22] MEDS: AMLODIPINE 10MG TABLET PO SCH (10:12)
[2019-01-22 12:00] VITALS: BP 130/84
[2019-01-22 16:00] VITALS: BP 127/84
[2019-01-22 20:12] VITALS: BP 143/74
[2019-01-22] MEDS ORDERED: ZOLPIDEM TARTRATE 5MG TABLET PO PRN (20:45)
[2019-01-23 05:00] VITALS: BP 128/78
[2019-01-23] MEDS: DIPHENHYDRAMINE 50MG/ML VIAL IV PRN ×4 (05:29→21:41)
[2019-01-23] MEDS: SODIUM CHLORIDE 0.9% INJ 3ML FLUSH IVF SCH ×3 (05:29→21:43)
[2019-01-23] MEDS: GABAPENTIN 300MG CAPSULE PO SCH ×3 (05:29→21:37)
[2019-01-23] MEDS: TRAMADOL 50MG TABLET PO PRN ×3 (05:29→21:41)
[2019-01-23] MEDS: BLOOD SUGAR DIAGNOSTIC STRIP TEST SCH ×4 (06:46→21:41)
[2019-01-23] MEDS: INSULIN LISPRO 100 UNITS/ML SUBCUT SCH ×4 (07:41→21:00)
[2019-01-23 08:00] VITALS: BP 132/81
[2019-01-23] MEDS: LOSARTAN POTASSIUM 25 MG TABLET PO SCH ×2 (09:07→21:37)
[2019-01-23] MEDS: METFORMIN HCL 500MG TABLET PO SCH ×2 (09:07→17:36)
[2019-01-23] MEDS: AMLODIPINE 10MG TABLET PO SCH (09:07)
[2019-01-23] MEDS: MAGNESIUM/ALUMINUM HYDROXIDE/SIMETHICONE 30ML UDC PO SCH (09:07)
[2019-01-23 12:00] VITALS: BP 125/77
[2019-01-23 17:00] VITALS: BP 119/68
[2019-01-23 20:00] VITALS: BP 106/69
[2019-01-24 04:00] VITALS: BP 119/54
[2019-01-24] MEDS: GABAPENTIN 300MG CAPSULE PO SCH ×3 (05:16→21:59)
[2019-01-24] MEDS: SODIUM CHLORIDE 0.9% INJ 3ML FLUSH IVF SCH ×3 (05:16→22:43)
[2019-01-24] MEDS: TRAMADOL 50MG TABLET PO PRN ×3 (05:17→22:01)
[2019-01-24] MEDS: DIPHENHYDRAMINE 50MG/ML VIAL IV PRN ×4 (05:18→21:59)
[2019-01-24] MEDS: BLOOD SUGAR DIAGNOSTIC STRIP TEST SCH (07:14)
[2019-01-24] MEDS: INSULIN LISPRO 100 UNITS/ML SUBCUT SCH (07:50)
[2019-01-24 08:00] VITALS: BP 144/89
[2019-01-24] MEDS: MAGNESIUM/ALUMINUM HYDROXIDE/SIMETHICONE 30ML UDC PO SCH (09:00)
[2019-01-24] MEDS: LOSARTAN POTASSIUM 25 MG TABLET PO SCH ×2 (09:25→21:59)
[2019-01-24] MEDS: METFORMIN HCL 500MG TABLET PO SCH ×2 (09:25→17:31)
[2019-01-24] MEDS: AMLODIPINE 10MG TABLET PO SCH (09:26)
[2019-01-24 12:00] VITALS: BP 143/77
[2019-01-24 16:30] VITALS: BP 144/72
[2019-01-24 20:00] VITALS: BP 121/67
[2019-01-25 04:00] VITALS: BP 121/65
[2019-01-25] MEDS: GABAPENTIN 300MG CAPSULE PO SCH ×3 (06:43→22:35)
[2019-01-25] MEDS: TRAMADOL 50MG TABLET PO PRN ×3 (06:44→22:36)
[2019-01-25] MEDS: SODIUM CHLORIDE 0.9% INJ 3ML FLUSH IVF SCH ×3 (06:45→22:35)
[2019-01-25 08:00] VITALS: BP 127/63
[2019-01-25] MEDS: DIPHENHYDRAMINE 50MG/ML VIAL IV PRN ×4 (08:26→22:36)
[2019-01-25] MEDS: LOSARTAN POTASSIUM 25 MG TABLET PO SCH ×2 (08:39→22:35)
[2019-01-25] MEDS: METFORMIN HCL 500MG TABLET PO SCH ×2 (08:39→18:01)
[2019-01-25] MEDS: AMLODIPINE 10MG TABLET PO SCH (08:39)
[2019-01-25] MEDS: MAGNESIUM/ALUMINUM HYDROXIDE/SIMETHICONE 30ML UDC PO SCH (08:39)
[2019-01-25 16:00] VITALS: BP 112/61
[2019-01-25 20:37] VITALS: BP 137/70
[2019-01-26] VITALS: BP 111/75
[2019-01-26] MEDS: DIPHENHYDRAMINE 50MG/ML VIAL IV PRN ×4 (05:04→21:06)
[2019-01-26] MEDS: GABAPENTIN 300MG CAPSULE PO SCH ×3 (05:04→21:05)
[2019-01-26] MEDS: SODIUM CHLORIDE 0.9% INJ 3ML FLUSH IVF SCH ×2 (05:04→14:00)
[2019-01-26 08:00] VITALS: BP 129/76
[2019-01-26] MEDS: MAGNESIUM/ALUMINUM HYDROXIDE/SIMETHICONE 30ML UDC PO SCH (09:00)
[2019-01-26] MEDS: LOSARTAN POTASSIUM 25 MG TABLET PO SCH ×2 (09:00→21:07)
[2019-01-26] MEDS: AMLODIPINE 10MG TABLET PO SCH (09:03)
[2019-01-26] MEDS: METFORMIN HCL 500MG TABLET PO SCH ×2 (09:04→17:58)
[2019-01-26] MEDS: TRAMADOL 50MG TABLET PO PRN ×2 (09:05→17:58)
[2019-01-26 12:00] VITALS: BP 115/61
[2019-01-26] MEDS ORDERED: TRAMADOL HCL/ACETAMINOPHEN 37.5/325MG TABLET PO PRN (15:00)
[2019-01-26 16:00] VITALS: BP 111/74
[2019-01-26 20:00] VITALS: BP 129/69
[2019-01-26] MEDS ORDERED: HYDRALAZINE 10 MG in SODIUM CHLORIDE 0.9% 49.5 ML IV PRN (20:30)
[2019-01-26 21:11] VITALS: BP 145/72
[2019-01-27] VITALS: BP 129/82
[2019-01-27 04:00] VITALS: BP 109/79
[2019-01-27] MEDS: DIPHENHYDRAMINE 50MG/ML VIAL IV PRN ×3 (05:12→14:31)
[2019-01-27] MEDS: GABAPENTIN 300MG CAPSULE PO SCH ×2 (05:13→14:31)
[2019-01-27] MEDS: TRAMADOL 50MG TABLET PO PRN ×2 (05:17→14:31)
[2019-01-27] MEDS ORDERED: DEXTROSE 50% WATER 50ML SYRINGE IV PRN (06:30)
[2019-01-27] MEDS ORDERED: BLOOD SUGAR DIAGNOSTIC STRIP TEST SCH (07:20)
[2019-01-27] MEDS ORDERED: INSULIN LISPRO 100 UNITS/ML SUBCUT SCH (07:50)
[2019-01-27 08:00] VITALS: BP 111/76
[2019-01-27] MEDS: MAGNESIUM/ALUMINUM HYDROXIDE/SIMETHICONE 30ML UDC PO SCH (09:00)
[2019-01-27] MEDS: METFORMIN HCL 500MG TABLET PO SCH (09:01)
[2019-01-27] MEDS: LOSARTAN POTASSIUM 25 MG TABLET PO SCH (09:01)
[2019-01-27] MEDS: AMLODIPINE 10MG TABLET PO SCH (09:02)
[2019-01-27 12:00] VITALS: BP 126/65
[2019-01-27] MEDS: SODIUM CHLORIDE 0.9% INJ 3ML FLUSH IVF SCH (14:00)
[2019-01-27 15:54] VITALS: BP 126/65
[2019-01-27 16:00] VITALS: BP 127/85
== END 2019-01-27 17:40 | disposition home or self-care (01) | DRG 198 ==
LOC: ER 01:48 → EDBEDREQ 07:14 → EDBEDREQTM 07:14 → 6WST 19:15 → ENRESERV 19:29 → 6WST 21:15 → 6EST 01-26 12:10
PROVIDERS: ADMIT Internal Medicine; ATTEND Internal Medicine
DX: I25.10 Atherosclerotic heart disease of native coronary artery without angina pectoris (principal); E11.42 Type 2 diabetes mellitus with diabetic polyneuropathy; G82.20 Paraplegia, unspecified; R07.89 Other chest pain; F20.9 Schizophrenia, unspecified; R45.851 Suicidal ideations; F17.200 Nicotine dependence, unspecified, uncomplicated; E78.5 Hyperlipidemia, unspecified; F10.10 Alcohol abuse, uncomplicated; G89.29 Other chronic pain; M54.40 Lumbago with sciatica, unspecified side; F15.10 Other stimulant abuse, uncomplicated; I10 Essential (primary) hypertension; Z59.0 Homelessness; M19.90 Unspecified osteoarthritis, unspecified site; I25.2 Old myocardial infarction; Y90.9 Presence of alcohol in blood, level not specified; Z83.3 Family history of diabetes mellitus; Z80.9 Family history of malignant neoplasm, unspecified; Z98.1 Arthrodesis status; Z91.5 Personal history of self-harm; Z79.899 Other long term (current) drug therapy; Z79.84 Long term (current) use of oral hypoglycemic drugs; Z88.6 Allergy status to analgesic agent; Z88.8 Allergy status to other drugs, medicaments and biological substances; Z91.013 Allergy to seafood; Z80.8 Family history of malignant neoplasm of other organs or systems
CPT/HCPCS: 36415; 71045; 72148; 80048; 80305; 81003; 82962; 83735; 83880; 84484; 93005; 99285; C1893; J1200; J1815; J2060

== ENCOUNTER 2020-06-23 03:26 | Inpatient (IN) | payer MEDICARE, MEDICAID ==
[~2020-06-23] VITALS: Ht 177.8 cm; Wt 117.9 kg
[2020-06-23] MEDS ORDERED: KETOROLAC 30MG/ML VIAL IV STA (04:05)
[2020-06-23] MEDS ORDERED: SODIUM CHLORIDE 0.9% 1,000 ML IV ONE (04:15)
[2020-06-23 04:28] LABS: BASOPHILS % 0.4 % (0.0-2.0); EOSINOPHILS % 0.2 % (0.0-5.0); HEMATOCRIT. 47.7 % (42.0-52.0); HEMOGLOBIN. 16.1 g/dL (14.0-18.0); LYMPHOCYTES % 12.5 % (20.0-50.0); MEAN CORPUSCULAR HEMOGLOBIN 31.5 pg (28.0-32.0); MEAN PLATELET VOLUME 6.2 fl (7.4-10.4); MONOCYTES % 7.1 % (2.0-8.0); NEUTROPHILS % 79.8 % (40.0-76.0); PLATELET 248 x1000/uL (130-400); RED BLOOD CELL COUNT 5.13 mill/uL (4.7-6.1); RED CELL DISTRIBUTION WIDTH 13.2 % (11.6-14.6)
[2020-06-23 04:34] LABS: CHLORIDE 108 mEq/L (98-107)
[2020-06-23 04:38] LABS: ETHANOL BLOOD < 10 mg/dL
[2020-06-23 05:48] LABS: CLARITY URINE CLEAR (CLEAR); COLOR URINE YELLOW (YELLOW); KETONES URINE NEGATIVE (NEGATIVE); LEUKOCYTE ESTERASE URINE NEGATIVE (NEGATIVE); NITRITE URINE NEGATIVE (NEGATIVE); OCCULT BLOOD URINE NEGATIVE (NEGATIVE); PROTEIN URINE TRACE (NEGATIVE); SPECIFIC GRAVITY URINE 1.019 (1.005-1.030)
[2020-06-23 06:01] LABS: *AMPHETAMINES SCREEN URINE PRESUMTIVE POSITIVE (NEGATIVE); *BARBITURATES SCREEN URINE NEGATIVE (NEGATIVE); *BENZODIAZEPINES SCREEN URINE NEGATIVE (NEGATIVE); *COCAINE SCREEN URINE NEGATIVE (NEGATIVE); CANNABINOID URINE SCREEN NEGATIVE (NEGATIVE); METHADONE URINE SCREEN NEGATIVE (NEGATIVE); OPIATES URINE SCREEN NEGATIVE (NEGATIVE)
[2020-06-23 06:02] LABS: PHENCYCLIDINE URINE SCREEN NEGATIVE (NEGATIVE)
[2020-06-23] MEDS ORDERED: LORAZEPAM 1MG TABLET PO ONE (07:15)
[2020-06-23 17:15] VITALS: BP 176/109
[2020-06-23] MEDS ORDERED: DOCUSATE SODIUM 100MG CAPSULE PO PRN (18:00)
[2020-06-23] MEDS ORDERED: MAGNESIUM/ALUMINUM HYDROXIDE/SIMETHICONE 30ML UDC PO PRN (18:00)
[2020-06-23] MEDS ORDERED: HYDRALAZINE 20MG/ML VIAL IV PRN (18:00)
[2020-06-23] MEDS ORDERED: DIPHENHYDRAMINE 50MG/ML VIAL IV PRN (18:00)
[2020-06-23] MEDS ORDERED: IPRATROPIUM/ALBUTEROL 0.5-3(2.5)MG/3ML NEB HHN PRN (18:00)
[2020-06-23] MEDS ORDERED: ENOXAPARIN 40MG/0.4ML SYR SUBCUT SCH (18:00)
[2020-06-23] MEDS ORDERED: ONDANSETRON HCL 4MG/2ML INJ IV PRN (18:00)
[2020-06-23] MEDS ORDERED: GUAIFENESIN 200MG/10ML SUGAR FREE UDC PO PRN (18:00)
[2020-06-23] MEDS ORDERED: INFLUENZA VACCINE 05/PF 0.5 ML VIAL IM ONE (19:00)
[2020-06-23] MEDS ORDERED: PNEUMOCOCCAL 23-VAL P-SAC VAC 0.5 ML IM ONE (19:00)
[2020-06-23] MEDS: CLONIDINE 0.1MG TABLET PO PRN (19:08)
[2020-06-23 20:00] VITALS: BP 155/83
[2020-06-23] MEDS: SODIUM CHLORIDE 0.9% INJ 3ML FLUSH IVF SCH (21:10)
[2020-06-23] MEDS: SODIUM CHLORIDE 0.45% 1,000 ML IV SCH (21:10)
[2020-06-23] MEDS: ENOXAPARIN 30MG/0.3ML SYR SUBCUT SCH (21:10)
[2020-06-23] MEDS ORDERED: TRAM50TA3 MT (21:21)
[2020-06-23] MEDS: TRAMADOL 50MG TABLET PO PRN (22:28)
[2020-06-24] VITALS: BP 105/59
[2020-06-24 00:10] LABS: CREATINE KINASE 104 IU/L (39-308)
[2020-06-24 00:11] LABS: CREATINE KINASE MB FRACTION 1.5 ng/mL (0.5-3.6)
[2020-06-24 04:52] VITALS: BP 133/67
[2020-06-24] MEDS: SODIUM CHLORIDE 0.9% INJ 3ML FLUSH IVF SCH ×3 (06:12→20:39)
[2020-06-24] MEDS: SODIUM CHLORIDE 0.45% 1,000 ML IV SCH ×2 (06:18→20:39)
[2020-06-24 08:00] VITALS: BP 155/82
[2020-06-24 08:01] LABS: CHLORIDE 107 mEq/L (98-107)
[2020-06-24 08:02] LABS: BASOPHILS % 0.3 % (0.0-2.0); EOSINOPHILS % 1.9 % (0.0-5.0); HEMATOCRIT. 43.9 % (42.0-52.0); HEMOGLOBIN. 15.3 g/dL (14.0-18.0); MEAN CORPUSCULAR HEMOGLOBIN 32.1 pg (28.0-32.0); MEAN CORPUSCULAR VOLUME 92.2 fL (80.0-94.0); MEAN PLATELET VOLUME 6.5 fl (7.4-10.4); MONOCYTES % 9.9 % (2.0-8.0); NEUTROPHILS % 53.9 % (40.0-76.0); PLATELET 242 x1000/uL (130-400); RED BLOOD CELL COUNT 4.76 mill/uL (4.7-6.1)
[2020-06-24 08:13] LABS: CREATINE KINASE MB FRACTION 1.5 ng/mL (0.5-3.6)
[2020-06-24 08:15] LABS: CREATINE KINASE 102 IU/L (39-308)
[2020-06-24] MEDS: TRAMADOL 50MG TABLET PO PRN ×2 (09:15→20:41)
[2020-06-24] MEDS: ENOXAPARIN 30MG/0.3ML SYR SUBCUT SCH ×2 (09:16→20:39)
[2020-06-24 12:00] VITALS: BP 141/76
[2020-06-24 16:00] VITALS: BP 139/97
[2020-06-24] MEDS: CLONIDINE 0.1MG TABLET PO PRN (20:48)
[2020-06-24 21:09] VITALS: BP 169/101
[2020-06-24] MEDS: LORAZEPAM 2MG/ML CPJ IV PRN (23:15)
[2020-06-25 04:30] VITALS: BP 168/97
[2020-06-25] MEDS: CLONIDINE 0.1MG TABLET PO PRN (05:22)
[2020-06-25] MEDS: SODIUM CHLORIDE 0.9% INJ 3ML FLUSH IVF SCH ×3 (05:22→20:48)
[2020-06-25] MEDS: TRAMADOL 50MG TABLET PO PRN (05:25)
[2020-06-25 08:10] VITALS: BP 137/82
[2020-06-25] MEDS: ENOXAPARIN 30MG/0.3ML SYR SUBCUT SCH ×2 (08:56→20:46)
[2020-06-25] MEDS: SODIUM CHLORIDE 0.45% 1,000 ML IV SCH ×2 (10:00→17:46)
[2020-06-25 12:00] VITALS: BP 131/72
[2020-06-25 16:10] VITALS: BP 135/90
[2020-06-25 20:00] VITALS: BP 149/72
[2020-06-26] VITALS: BP 146/66
[2020-06-26 04:00] VITALS: BP 142/70
[2020-06-26] MEDS: SODIUM CHLORIDE 0.9% INJ 3ML FLUSH IVF SCH ×3 (06:07→20:49)
[2020-06-26 08:30] VITALS: BP 135/81
[2020-06-26] MEDS: ENOXAPARIN 30MG/0.3ML SYR SUBCUT SCH ×2 (08:46→20:48)
[2020-06-26] MEDS: TRAMADOL 50MG TABLET PO PRN ×2 (08:54→20:48)
[2020-06-26 12:00] VITALS: BP 161/64
[2020-06-26] MEDS: SODIUM CHLORIDE 0.45% 1,000 ML IV SCH (13:08)
[2020-06-26 16:04] VITALS: BP 137/109
[2020-06-26 20:00] VITALS: BP_SYST 156; BP_SYST 169; BP_DIAS 70; BP_DIAS 72
[2020-06-26] MEDS: CLONIDINE 0.1MG TABLET PO PRN (20:49)
[2020-06-26] MEDS: LORAZEPAM 2MG/ML CPJ IV PRN (21:40)
[2020-06-26] MEDS ORDERED: ZOLPIDEM TARTRATE 5MG TABLET PO PRN (22:30)
[2020-06-27] VITALS: BP 156/70
[2020-06-27 03:54] VITALS: BP 136/66
[2020-06-27] MEDS: SODIUM CHLORIDE 0.45% 1,000 ML IV SCH ×3 (04:01→21:34)
[2020-06-27] MEDS: SODIUM CHLORIDE 0.9% INJ 3ML FLUSH IVF SCH ×3 (05:49→21:33)
[2020-06-27 08:30] VITALS: BP 143/75
[2020-06-27] MEDS: ENOXAPARIN 30MG/0.3ML SYR SUBCUT SCH ×2 (09:40→21:33)
[2020-06-27 12:00] VITALS: BP 117/81
[2020-06-27 16:00] VITALS: BP 138/62
[2020-06-27 20:00] VITALS: BP 162/80
[2020-06-27] MEDS: LORAZEPAM 2MG/ML CPJ IV PRN (21:58)
[2020-06-27] MEDS: CLONIDINE 0.1MG TABLET PO PRN (22:11)
[2020-06-28] VITALS: BP 128/55
[2020-06-28] MEDS: TRAMADOL 50MG TABLET PO PRN ×2 (03:52→09:01)
[2020-06-28 04:00] VITALS: BP 140/67
[2020-06-28] MEDS: SODIUM CHLORIDE 0.9% INJ 3ML FLUSH IVF SCH ×3 (06:10→21:58)
[2020-06-28 08:00] VITALS: BP 152/85
[2020-06-28] MEDS: ENOXAPARIN 30MG/0.3ML SYR SUBCUT SCH ×4 (08:59→22:10)
[2020-06-28] MEDS: SODIUM CHLORIDE 0.45% 1,000 ML IV SCH ×2 (08:59→18:00)
[2020-06-28] MEDS: LORAZEPAM 2MG/ML CPJ IV PRN (10:28)
[2020-06-28 12:00] VITALS: BP 144/70
[2020-06-28 19:38] VITALS: BP 137/84
[2020-06-29] VITALS: BP 138/69
[2020-06-29] MEDS ORDERED: TRAMADOL 50MG TABLET PO PRN (00:45)
[2020-06-29 04:00] VITALS: BP 122/60
[2020-06-29] MEDS: SODIUM CHLORIDE 0.9% INJ 3ML FLUSH IVF SCH (05:11)
[2020-06-29] MEDS: SODIUM CHLORIDE 0.45% 1,000 ML IV SCH (05:11)
[2020-06-29 07:27] LABS: CHLORIDE 108 mEq/L (98-107)
[2020-06-29 07:57] LABS: BASOPHILS % 0.5 % (0.0-2.0); EOSINOPHILS % 2.8 % (0.0-5.0); HEMATOCRIT. 40.7 % (42.0-52.0); LYMPHOCYTES % 31.2 % (20.0-50.0); MEAN CORPUSCULAR HEMOGLOBIN 32.1 pg (28.0-32.0); MEAN CORPUSCULAR VOLUME 93.2 fL (80.0-94.0); MEAN PLATELET VOLUME 6.8 fl (7.4-10.4); MONOCYTES % 10.3 % (2.0-8.0); NEUTROPHILS % 55.2 % (40.0-76.0); PLATELET 238 x1000/uL (130-400); RED BLOOD CELL COUNT 4.37 mill/uL (4.7-6.1); RED CELL DISTRIBUTION WIDTH 13.5 % (11.6-14.6)
[2020-06-29 08:00] VITALS: BP 153/83
[2020-06-29 11:40] VITALS: BP 137/65
[2020-06-29 14:24] VITALS: BP 137/65
[2020-06-29 16:00] VITALS: BP 153/70
[2020-06-29] MEDS: CLONIDINE 0.1MG TABLET PO PRN (16:55)
== END 2020-06-29 17:53 | DRG 203 ==
LOC: ER 03:37 → 6WST 11:45 → EDBEDREQ 11:49 → EDBEDREQTM 11:49 → ENRESERV 13:02 → CANRESERV 13:31 → ENRESERV 13:31 → 6WST 17:39
PROVIDERS: ADMIT Internal Medicine; ATTEND Internal Medicine
DX: M94.0 Chondrocostal junction syndrome [Tietze] (principal); R45.851 Suicidal ideations; F20.9 Schizophrenia, unspecified; E11.9 Type 2 diabetes mellitus without complications; I10 Essential (primary) hypertension; R79.89 Other specified abnormal findings of blood chemistry; F31.9 Bipolar disorder, unspecified; Z20.822 Contact with and (suspected) exposure to COVID-19; F15.10 Other stimulant abuse, uncomplicated; Z88.6 Allergy status to analgesic agent; Z88.5 Allergy status to narcotic agent; Z91.013 Allergy to seafood; Z59.0 Homelessness
CPT/HCPCS: 36415; 71045; 80048; 80053; 80305; 80320; 81003; 82550; 82553; 83880; 84484; 85025; 87426; 90686; 90732; 93005; 99285; J1650; J1885; J2060; J7030; U0003; A4315; G0480